=== PATIENT | female | born 1935 | race Caucasian/White ===

== ENCOUNTER → 2022-02-24 09:05 | Outpatient (BNVA) | payer MEDICARE, SELFPAY | PROVIDERS: PCP Internal Medicine; Visit Provider Nurse Practitioner Family | DX: R56.9 Unspecified convulsions (principal); S09.90XA Unspecified injury of head, initial encounter; I48.91 Unspecified atrial fibrillation; Z79.01 Long term (current) use of anticoagulants; Z79.899 Other long term (current) drug therapy | CPT/HCPCS: 99202 ==

== ENCOUNTER 2022-03-08 09:32 | Outpatient (REF) | payer MEDICARE, SELFPAY ==
--- NOTE | ~2022-03-08 | CT_ITS ---
EXAMINATION: CT HEAD WITHOUT CONTRAST CLINICAL INFORMATION: Atrial fibrillation. Status post fall with injury. COMPARISON: None TECHNIQUE: Contiguous axial imaging was performed from the skull base to vertex without intravenous administration of contrast. This CT examination was performed using dose optimization techniques as appropriate, variously including the following: *Automated exposure control *Adjustment of mA and/or kV according to patient size (this includes techniques or standardized protocols for targeted exams where dose is matched to indication/reason for exam; i.e. extremities or head) *Use of iterative reconstruction technique DLP: 728 mGy-cm FINDINGS: There is no evidence of acute intracranial hemorrhage or territorial infarction. No abnormal mass effect or midline shift is seen. Dill to white matter differentiation is well preserved. No extra-axial fluid collections are identified. The lateral ventricles are symmetrical but enlarged. Mild prominence of cortical sulci seen. There is a left frontal scalp hematoma measuring 1.7 x 0.9 cm. Bone windows reveal no calvarial abnormality no visible fracture seen. Bilateral paranasal sinuses and mastoid air cells are well aerated. Mild loss of bilateral TM joint space with periarticular spurring is noted. CT/CT head/brain wo con IMPRESSION: Left frontal scalp hematoma. No acute intracranial process seen. Age-related cerebral volume loss.
== END 2022-03-08 09:33 | disposition home or self-care (01) ==
LOC: HO.CT 09:32
PROVIDERS: PCP Internal Medicine; Visit Provider Nurse Practitioner Family
DX: S09.90XA Unspecified injury of head, initial encounter (principal); R56.9 Unspecified convulsions; I48.91 Unspecified atrial fibrillation
CPT/HCPCS: 70450

== ENCOUNTER → 2022-04-21 13:28 | Outpatient (BNVA) | payer MEDICARE, SELFPAY | PROVIDERS: PCP Internal Medicine; Visit Provider Nurse Practitioner Family | DX: R56.9 Unspecified convulsions (principal); E11.40 Type 2 diabetes mellitus with diabetic neuropathy, unspecified; I48.91 Unspecified atrial fibrillation; S09.90XD Unspecified injury of head, subsequent encounter | CPT/HCPCS: 99212 ==

== ENCOUNTER → 2022-10-27 10:28 | Outpatient (BNVA) | payer MEDICARE, SELFPAY | PROVIDERS: PCP Internal Medicine; Visit Provider Nurse Practitioner Family | DX: R56.9 Unspecified convulsions (principal); E11.40 Type 2 diabetes mellitus with diabetic neuropathy, unspecified | CPT/HCPCS: Q3014 ==

== ENCOUNTER 2023-04-28 13:11 | Outpatient (REF) | payer MEDICARE, SELFPAY ==
[2023-04-28 13:23] LABS: MANUAL DIFF FLAG NO
[2023-04-28 14:17] LABS: Basophils Absolute Auto 0.1 X10*3/uL (0.0-0.2); Basophils Percent Auto 0.6 % (0-2); Eosinophils Absolute Auto 0.1 X10*3/uL (0.0-0.4); Hematocrit 30.3 % (37.0-47.0); Imm Gran Abs Auto 0.02 X10*3/uL (0.00-0.03); Imm Gran Pct Auto 0.2 % (0.0-0.4); Lymphocytes Absolute Auto 2.3 X10*3/uL (1.2-4.9); Lymphocytes Percent Auto 28.6 % (20-40); Mean Corpuscular Hemoglobin 32.5 pg (27.0-33.0); Mean Corpuscular Volume 98.4 fL (80.0-98.0); Mean Platelet Volume 10.5 fL (9.4-12.3); Monocytes Absolute Auto 0.8 X10*3/uL (0.1-1.2); Monocytes Percent Auto 9.5 % (2-11); Neutrophils Absolute Auto 4.8 x10*3/uL (2.0-8.3); Neutrophils Percent Auto 60.1 % (45-73); Platelet Count 171 X10*3/uL (160-400); Red Blood Count 3.08 X10*6/uL (4.20-5.50); Red Cell Distribution Width 15.6 % (11.0-16.0)
[2023-04-28 15:32] LABS: Alanine Aminotransferase 23 U/L (0-31); Albumin Level 2.5 g/dL (3.5-5.0); Alkaline Phosphatase 166 U/L (39-117); Anion Gap 16 (12-20); Aspartate Amino Transferase 42 U/L (5-31); Bilirubin Total 0.5 mg/dL (0.0-1.0); Blood Urea Nitrogen 8 mg/dL (9-16); Calcium 8.6 mg/dL (8.4-10.2); Carbon Dioxide 26 mmol/L (22-29); Chloride 94 mmol/L (96-108); Estimated Glomerular Filt Rate 58; Glucose Random 97 mg/dL (60-115); Potassium 3.6 mmol/L (3.3-5.1); Sodium 132 mmol/L (135-145); Total Protein 5.4 g/dL (6.5-8.0)
== END 2023-04-28 13:12 | disposition home or self-care (01) ==
LOC: HO.LAB 13:11
PROVIDERS: PCP Internal Medicine; Visit Provider Nurse Practitioner Family
DX: R56.9 Unspecified convulsions (principal)
CPT/HCPCS: 36415; 80053; 85025

== ENCOUNTER 2024-08-27 10:44 | Outpatient (AMB) | payer MEDICARE, SELFPAY ==
--- NOTE | 2024-08-27 10:55 | A.OFFVIS_ITS ---
Vital Signs 08/27/24 10:59 Height 5 ft 7.5 in Weight 110 lb BMI 17.0 BP 144/58 H Blood Pressure Location Rt brachial Position Sitting Pulse 83 Pulse Source Pulse Oximeter Pulse Oximetry (%) 99 Oxygen Delivery Method Room Air Intake Visit Reasons: Follow up Typewriter Mechanic Required: No Accompanied by: Son Allergies No Known Allergies Allergy (Verified 08/27/24 11:03) Medication List - Last Reconciled 08/27/24 by SHIREEN Sol albuterol sulfate 2.5 mg inhalation Q4H PRN apixaban (Eliquis) 2.5 mg PO BID atenolol 50 mg PO DAILY cholecalciferol (vitamin D3) 25 mcg PO DAILY doxycycline hyclate 100 mg PO DAILY ferrous sulfate 325 mg PO DAILY levetiracetam 750 mg PO BID 90 days pantoprazole 40 mg PO DAILY prednisolone sodium phosphate 10 mg PO DAILY simvastatin 20 mg PO BEDTIME HPI Comments Details: 89-yr-old female presents for f/u visit. Pt is accompanied by her son, Freddy Ferro who is her HCP. She has interval hospitalizations at [facility] typically for COPD exacerbations. And in May 2024 for PNA and GI bleed- which has resolved. Pt reports she has had a recent hospital admission for COPD exacerbation and required a post-hosp rehab. She has since returned home. She is currently on a course of doxycycline and prednisone. Pt denies any interval seizure activity. She is compliant w/ Keppra- tolerating well. Denies headaches, spacing out episodes, lightheadedness, dizziness, falls. She is eating and drinking ok. She is still taking gin and tonic. Has not had any withdrawal s/s during her recent hospitalizations. She uses a rollator walker at home, w/c for appt's. She is sleeping a lot . Denies any stroke-like symptoms. Pt denies any recent BLE discomfort at times- does have a h/o painful neuropathy. [place] Lab Results ? Latest Ref Rng & Units 07/03/2024 White Blood Cell Count 4.8 - 10.8 x10-3/uL 5.6 RBC 3.8 - 4.8 x10-6/uL 2.9(L) Hemoglobin 11.5 - 16.0 g/dL 9.1(L) Hematocrit 35 - 47 % 29.9(L) MCV 79 - 98 fL 104.9(H) MEAN CORPUSCULAR HEMOGLOBIN 27 - 32 pg 31.9 MCHC 32 - 37 g/dL 30.4(L) RED CELL DISTRIBUTION WIDTH 11 - 15 % 16.3(H) Platelet Count 130 - 400 x10-3/uL 297 MPV 7 - 11 fL 10.0 NRBC % AUTO <1 % 0.0 NEUTROPHILS % 85.2 LYMPHOCYTESl % 8.9 MONO % % 5.0 EOSINOPHILS % 0.0 BASO % % 0.0 IMMATURE GRANULOCYTES % % 0.9 NRBC # AUTO <0.1 x10-3/uL 0.00 NEUT # 1.5 - 7.0 x10-3/uL 4.81 LYMPH # 1 - 5.0 x10-3/uL 0.50(L) MONO # 0.2 - 1.0 x10-3/uL 0.28 EOS # 0 - 0.5 x10-3/uL 0.00 BASO # 0 - 0.2 x10-3/uL 0.00 IMMATURE GRANULOCYTES #l 0 - 0.03 x10-3/uL 0.05(H) GLOMERULAR FILTRATION RATE >60 60 GLUCOSE, PLASMA 70 - 100 mg/dL 212(H) Blood Urea Nitrogen 5 - 25 mg/dL 18 creatinine 0.5 - 1.1 mg/dL 0.92 NA (WB) 135 - 145 mEq/L 138 K 3.5 - 5.5 mmol/L 4.3 Chloride 96 - 110 mmol/L 101 CARBON DIOXIDE 21 - 32 mmol/L 29 ANION GAP 3 - 11 8 CALCIUM 8.5 - 10.5 mg/dL 9.6 PROTEIN, TOTAL 6.0 - 8.0 G/dL 5.9(L) Albumin 3.2 - 5.0 G/dL 2.7(L) Bilirubin, total 0.0 - 1.4 mg/dL 0.2 AST (SGOT) 10 - 42 U/L 75(H) ALT (SGPT) 10 - 60 U/L 105(H) Alk Phos 42 - 121 U/L 123(H) IRON BINDING CAPACITY 250 - 450 ug/dL 327 IRON, TOTAL 40 - 150 ug/dL 29(L) % FE SATURATION 15 - 50 % 9(L) FERRITIN 8 - 252 ng/mL 120 [facility] Medical History Asthma Pulmonary nodule Hyperlipidemia Hypertension Cancer of mouth Alcohol abuse Type 2 diabetes mellitus with renal manifestations CKD (chronic kidney disease) Carotid stenosis Anemia Atrial fibrillation Surgical History Hx of oral surgery Hx of hemorrhoidectomy Hx of hysterectomy Social History Household Members Other:: SON Alcohol intake: current Alcohol intake frequency: 3 or more drinks per day Alcohol type: hard liquor Patient Tobacco Use Status: Current everyday Tobacco user Cigarette Packs Per Day: 0.5 Physical Exam Vital Signs: Last Vital Signs Pulse 83 08/27/24 10:59 BP 144/58 H 08/27/24 10:59 Pulse Ox 99 08/27/24 10:59 Oxygen Delivery Method Room Air 08/27/24 10:59 BMI result Body Mass Index 17.0 Resp Effort & Inspection: normal respiratory effort and able to speak in complete sentences Neuro Other: Patient is alert and oriented w/ short-term recall difficulties. Sitting upright in w/c. Psych Affect: normal affect Attitude: cooperative Assessment & Plan Assessment & Plan (1) Seizure: Code(s): R56.9 - Unspecified convulsions Category: Medical (2) Diabetic neuropathy: Code(s): E11.40 - Type 2 diabetes mellitus with diabetic neuropathy, unspecified Category: Medical Plan Continue Levetiracetam 750mg bid. Pt does continue to take alcohol on a daily basis when at home- pt is not interested in stopping. Advised abrupt alcohol cessation can induce seizure activity. Reviewed recent CBC and CMP- anemia. Pt has f/u w/ PCP on Monday. Monitor BLE neuropathic pain- may be improved as pt is currently on prednisone. Pt to call us with any interval changes or breakthrough seizures. Pt to follow-up in 12 months or sooner prn. Coding Level of Care Code Est Pt Level 4 (50537) Diagnoses Seizure R56.9 Diabetic neuropathy E11.40
[2024-08-27 10:59] VITALS: BP 144/58; PULSE 83; O2SAT 99; BMI 17.0
== END 2024-08-27 11:56 | disposition home or self-care (01) ==
PROVIDERS: PCP Internal Medicine; Visit Provider Nurse Practitioner Family
DX: R56.9 Unspecified convulsions (principal); E11.40 Type 2 diabetes mellitus with diabetic neuropathy, unspecified
CPT/HCPCS: 99214

== ENCOUNTER → 2024-08-27 10:44 | Outpatient (BNVA) | payer MEDICARE, SELFPAY | PROVIDERS: PCP Internal Medicine; Visit Provider Nurse Practitioner Family | DX: R56.9 Unspecified convulsions (principal); E11.40 Type 2 diabetes mellitus with diabetic neuropathy, unspecified; F10.20 Alcohol dependence, uncomplicated | CPT/HCPCS: 99212 ==

== ENCOUNTER 2025-08-27 07:51 | Outpatient (AMB) | payer MEDICARE, SELFPAY ==
--- OUTSIDE RECORDS SUMMARY | 2025-08-27 07:55 | XMS_ITS | Encounter Summary ---
Author Organization [facility] Address [address] [place] [address] Care Team Providers Care Research Associate Molecular Biology Name Role Phone Iam Gee MD Primary Care Provider [phone] Encounter Details Date Type Department Care Team ([facility] Contact Info) Description 02/28/[address] [facility] - Main Lab [address] [facility] [place] [address] Alan Longo MD [address] [place] [address] [address] [place], [address] Anemia, unspecified Social History Tobacco Use Types Packs/Day Years Used Date Smoking Tobacco: Former Cigarettes 1 69.2 1 01/03/1947 - 01/03/2018 Smokeless Tobacco: Never Alcohol Use Standard Drinks/Week Comments Yes 0 (1 standard drink = 0.6 oz pur e alcohol) Interpersonal Safety Answer Date Record ed Physical Abuse Unrecognized value 01/28/2025 Verbal Abuse Unrecognized value 01/28/2025 Comments Unknown Sex and Gender Information Value Date Recorded Sex Assigned at Female 01/07/2025 3:12 PM EST Legal Sex Female 7:04 AM EST Gender Identity Female 01/07/2025 3:12 PM EST Sexual Orientation Straight 01/07/2025 3: 12 PM EST documented as of this encounter Plan of Treatment Upcoming Encounters Date Type Department Care Team ([facility] Contact Info) Description 08/28/2025 10:30 AM EDT Office Visit Orthopedic Surgery - [place] [address] [facility] 250 [place] [phone] Aime Mendoza DPYosef 175 [facility] 250 [place] [phone] 09/12/2025 2:30 PM EDT Office Visit Vascular Surgery - [place] [address] [place] [address] Berny Saavedra MD 230 [place] [address] 10/13/2025 8:45 AM EST Office Visit Internal Medicine - [place] 175 [facility] 200 [place] [phone] Iam Gee MD [address] [address] 11/05/2025 8:30 AM EST Office Visit Gastroenterology [address] [phone] Elise Savage PA [address] [address] 11/10/2025 9:15 AM EST Office Visit Pulmonology - [address] [phone] Juanita Clements MD [address] [address] 01/05/2026 8:00 AM EST Office Visit Pulmonology [facility] [address] [phone] Juanita Clements MD [address] [address] 03/03/2026 9:00 AM EDT Ancillary Procedure [facility] [address] [place] [address] documented as of this encounter Procedures Procedure Name Priority Date/Time Associated Diagnosis Comments COMPLETE BLOOD COUNT Routine 03/03/2025 5:19 AM EDT Anemia, unspecified BASIC METABOLIC PANEL Routine 03/03/2025 5:19 AM EDT Anemia, unspecified documented in this encounter Results * (ABNORMAL) Basic metabolic panel (03/03/2025 5:19 AM EDT) Sodium 139 133 - 145 mmol/L LAB CHEMISTRY METHOD 03/03/2025 10:41 AM [facility] Potassium 4.1 3.5 - 5.5 mmol/L LAB CHEMISTRY METHOD 03/03/2025 10:41 AM [facility] Chloride 101 96 - 110 mmol/L LAB CHEMISTRY METHOD 03/03/2025 10:41 AM [facility] CO2 31 21 - 32 mmol/L LAB CHEMISTRY METHOD 03/03/2025 10:41 AM [facility] Anion Gap 7 3 - 11 LAB CHEMISTRY METHOD 03/03/2025 10:41 AM [facility] Glucose 74 70 - 100 mg/dL LAB CHEMISTRY METHOD 03/03/2025 10:41 AM [facility] BUN 26(H) 5 - 25 mg/dL LAB CHEMISTRY METHOD 03/03/2025 10:41 AM [facility] Creatinine 1.04 0.50 - 1.10 mg/dL LAB CHEMISTRY METHOD 03/03/2025 10:41 AM [facility] eGFR 52(L) >=60 mL/min/1. 73m2 LAB CHEMISTRY METHOD 03/03/2025 10:41 AM [facility] Comment:Calculation based on the Chronic Kidney Disease Epidemiology Collaboration (CKD-EPI) equation refit without adjustment for race. BUN/Creatinine Ratio 25.0 LAB CHEMISTRY METHOD 03/03/2025 10:41 AM T [facility] Calcium 9.3 8.5 - 10.5 mg/dL LAB CHEMISTRY METHOD 03/03/2025 10:41 AM [facility] Blood Venous blood specimen / Unknown Venipuncture / Unknown 03/03/2025 5:19 AM EDT 03/03/2025 9:57 AM EDT us Alan Longo MD LAB BLOOD ORDERABLES Final Resul t [facility] [address] [place] [address], [place] [phone] * (ABNORMAL) Complete blood count (03/03/2025 5:19 AM EDT) WBC 7.8 4.8 - 10.8 K/mcL LAB HEMETOLOGY METHOD 03/03/2025 10:24 AM [facility] RBC 2.90(L) 3.80 - 4.80 M/mcL LAB HEMETOLOGY METHOD 03/03/2025 10:24 AM [facility] Hemoglobin 9.0(L) 11.5 - 16.0 g/dL LAB HEMETOLOGY METHOD 03/03/2025 10:24 AM [facility] Hematocrit 28.1(L) 35.0 - 47.0 % LAB HEMETOLOGY METHOD 03/03/2025 10:24 AM [facility] MCV 98.3(H) 79.0 - 98.0 FL LAB HEMETOLOGY METHOD 03/03/2025 10:24 AM [facility] MCH 31.5 27.0 - 32.0 pcg LAB HEMETOLOGY METHOD 03/03/2025 10:24 AM [facility] MCHC 32.0 32.0 - 37.0 g/dL LAB HEMETOLOGY METHOD 03/03/2025 10:24 AM EDT [facility] RDW 15.3(H) 11.0 - 15.0 % LAB HEMETOLOGY METHOD 03/03/2025 10:24 AM EDT [facility] Platelets 184 130 - 400 K/mcL LAB HEMETOLOGY METHOD 03/03/2025 10:24 AM EDT [facility] MPV 10.8 7.0 - 11.0 FL LAB HEMETOLOGY METHOD 03/03/2025 10:24 AM EDT [facility] NRBC 0.0 <1.0 % LAB HEMETOLOGY METHOD 03/03/2025 10:24 AM EDT [facility] NRBC Absolute 0.00 <0.10 K/mcL LAB HEMETOLOGY METHOD 03/03/2025 10:24 AM EDT [facility] Blood Venous blood specimen / Unknown Venipuncture / Unknown 03/03/2025 5:19 AM EDT 03/03/2025 9:57 AM EDT us Alan Longo MD LAB BLOOD ORDERABLES Final Resul t [facility] [address] [place] [address], documented in this encounter Visit Diagnoses Diagnosis Anemia, unspecified Encounter for adjustment or management of cardiac device documented in this encounter Care Teams Research Associate Molecular Biology Relationship Specialty Start Date End Date Iam Gee MD [address] [address] PCP - General Internal Medicine 12/30/24 documented as of this encounter
--- OUTSIDE RECORDS SUMMARY | 2025-08-27 07:55 | XMS_ITS | Encounter Summary ---
Author Organization [facility] Address [address] [place] [address] Care Team Providers Care Access Services Representative Name Role Phone Iam Gee MD Primary Care Provider [phone] Encounter Details Date Type Department Care Team ([facility] Contact Info) Description 03/07/2025 Lab Requisition [facility] - Main Lab [address] [facility] [place] [address] Alan Longo MD [address] [place] [address] [address] [place], [address] Anemia, unspecified Social History Tobacco Use [...] Upcoming Encounters Date Type Department Care Team ([facility] Contact Info) Description 08/28/2025 10:30 AM EDT Office Visit Orthopedic Surgery - [place] 250 175 [facility] 250 [place] [phone] Aime Mendoza DPYosef 175 [facility] 250 [place] [phone] 09/12/2025 2:30 PM EDT Office Visit Vascular Surgery - [place] [address] [place] [address] Berny Saavedra MD 230 [place] [address] 10/13/2025 8:45 AM EST Office Visit Internal Medicine - [place] 175 [facility] 200 [place] [phone] Iam Gee MD [address] [address] 11/05/2025 8:30 AM EST Office Visit Gastroenterology [address] [phone] Elise Savage PA [address] [address] 11/10/2025 9:15 AM EST Office Visit Pulmonology - [address] [phone] Juanita Clements MD [address] [address] 01/05/2026 8:00 AM EST Office Visit Pulmonology [facility] [address] [phone] Juanita Clements MD [address] [address] 03/03/2026 9:00 AM EDT Ancillary Procedure [facility] - [address] [place] [address] documented as of this encounter Visit Diagnoses Diagnosis Anemia, unspecified Encounter for adjustment or management of cardiac device documented in this encounter Care Teams Access Services Representative Relationship Specialty Start Date End Date Iam Gee MD [address] [facility] [address] [place], [place] [phone] PCP - General Internal Medicine 12/30/24 documented as of this encounter
--- OUTSIDE RECORDS SUMMARY | 2025-08-27 07:55 | XMS_ITS ---
Author Organization [address] [facility] Address 175 [place] [address] Phone Care Team Providers Care Manager Behavioral Name Role Phone Iam Gee MD Primary Care Provider [phone] Active Problems Problem Noted Date Diagnosed Date Absent pedal pulses 08/01/2025 Atrial fib/flutter, transient ([facility] V24, [facility] V28) 06/09/2025 AV block 01/28/2025 Essential (primary) hypertension 12/06/2024 Chronic obstructive pulmonar y disease, unspecified ([facility] V24, [facility] V28) 12/06/2024 Nicotine dependence, cigarettes, uncomplicated 0 12/06/2024 Peripheral vascular disease, unspecified ([facility] V24) 12/06/2024 Squamous cell carcinoma of skin, unspecified 08/2025 Epilepsy, unspecified, not i ntractable, without status epilepticus ([facility] V24, [facility] V28) 12/06/2024 COPD (chronic obstructive pu lmonary disease) ([facility] V24, [facility] V28) 07/18/2023 Overview (09/16/2024): Last Assessment & Plan: Given her history of smoking, symptoms, recent hospitalization most likely she has moderate to advanced COPD. She is currently taking Spiriva and Symbicort and I recommended her to continue with these medications. We will reassess when she comes back for pulmonary function test. I encouraged her to continue without smoking. Hypoxemia 07/18/2023 Overview (09/16/2024): Last Assessment & Plan: Patient with hypoxemia at rest of 86% measured multiple times. Patient cannot walk at this point. I have prescribed oxygen to use at home and we will reevaluate her in 6-8 weeks with pulmonary function test. Slightly dizzy combination of the status post pneumonia and COPD. Lumbar vertebral fracture ([facility] V24, [facility] V28) 07/08/2022 Overview (09/16/2024): Last Assessment & Plan: Incidentally found on this CT chest she is noted to have fractures of L2, L3, and L4 vertebral body which is new compared to CT scan done in June 2021. This may be related to her recent fall. Upon my questioning it does not appear that she has any neurological changes to her lower extremities, urinary or fecal incontinence. She complains of some residual soreness and stiffness to her lower back. I will be sending my note with these results over to her primary care physician for further evaluation of these vertebral body fractures. Carotid stenosis 09/28/2021 Overview (09/16/2024): Last Assessment & Plan: We will repeat carotid duplex. Anemia 09/10/2019 CKD (chronic kidney disease) stage 3, GFR 30-59 ml/min ([facility] V24, [facility] V28) 12/28/2018 Type 2 diabetes mellitus wit h renal manifestations ([facility] V24, [facility] V28) 12/28/2018 Seizure disorder ([facility] V24, [facility] V28) 07/28 Alcohol abuse 08/14/2018 Cancer of mouth ([facility] V24, [facility] V28) 08/14 Diabetic neuropathy ([facility] V24, [facility] V28) 0 08/14/2018 Hypertension 08/14/2018 Diabetes mellitus type 2 wit h neurological manifestations ([facility] V24, [facility] V28) 06/12/2018 Hyperlipidemia 03/01/2018 Pulmonary nodules 03/01/2018 Overview (09/16/2024): Last Assessment & Plan: She has been followed currently in the thoracic clinic. Asthma 11/29/2016 Current Treatment and Therapy Plans No current plan information found. Past Treatment and Therapy Plans No past plan information found. Lifetime Dose Tracking * Chemical Lifetime Dose Automatic Entry Manual Entr y Radiation 820.68 mGy 0 mGy 820.68 mGy Fluoro Time 14.5 minutes 0 minutes 14.5 minutes CTDIvol 6.64 mGy 6.64 mGy 0 mGy
--- OUTSIDE RECORDS SUMMARY | 2025-08-27 07:55 | XMS_ITS | Encounter Summary ---
Author Organization [facility] Address [address] [place] [address] Care Team Providers Care Chipping Machine Operator Name Role Phone Iam Gee MD Primary Care Provider [phone] Encounter Details Date Type Department Care Team ([facility] Contact Info) Description 02/16/[address] [facility] - Main Lab 299 [facility] [place] [address] Alan Longo MD [address] [place] [address] 204 [place], [phone] Anemia, unspecified Social History Tobacco Use [...] AM EDT Office Visit Orthopedic Surgery - [place] 250 175 [facility] 250 [place] [phone] Aime Mendoza DPYosef 175 [facility] 250 [place] [phone] 09/12/2025 2:30 PM EDT Office Visit Vascular Surgery - [place] [address] [place] [address] Berny Saavedra MD 230 [place] [address] 10/13/2025 8:45 AM EST Office Visit Internal Medicine - [place] 175 [facility] 200 [place] [phone] Iam Gee MD [address] [address] 11/05/2025 8:30 AM EST Office Visit Gastroenterology [address] [phone] Elise Savage PA [address] [address] 11/10/2025 9:15 AM EST Office Visit Pulmonology - [address] [phone] Juanita Clements MD [address] [address] 01/05/2026 8:00 AM EST Office Visit Pulmonology [facility] [address] [phone] Juanita Clements MD [address] [address] 03/03/2026 9:00 AM EDT Ancillary Procedure [facility] - [address] [place] [address] documented as of this encounter Procedures Procedure Name Priority Date/Time Associated Diagnosis Comments COMPLETE BLOOD COUNT Routine 02/17/2025 5:26 AM EDT Anemia, unspecified BASIC METABOLIC PANEL Routine 02/17/2025 5:26 AM EDT Anemia, unspecified documented in this encounter Results * (ABNORMAL) Basic metabolic panel (02/17/2025 5:26 AM EDT) Sodium 133 133 - 145 mmol/L LAB CHEMISTRY METHOD 02/17/2025 11:10 AM [facility] Potassium 4.4 3.5 - 5.5 mmol/L LAB CHEMISTRY METHOD 02/17/2025 11:10 AM [facility] Chloride 94(L) 96 - 110 mmol/L LAB CHEMISTRY METHOD 02/17/2025 11:10 AM [facility] CO2 31 21 - 32 mmol/L LAB CHEMISTRY METHOD 02/17/2025 11:10 AM [facility] Anion Gap 8 3 - 11 LAB CHEMISTRY METHOD 02/17/2025 11:10 AM [facility] Glucose 95 70 - 100 mg/dL LAB CHEMISTRY METHOD 02/17/2025 11:10 AM [facility] BUN 22 5 - 25 mg/dL LAB CHEMISTRY METHOD 02/17/2025 11:10 AM [facility] Creatinine 0.92 0.50 - 1.10 mg/dL LAB CHEMISTRY METHOD 02/17/2025 11:10 AM [facility] eGFR 60 >=60 mL/min/1. 73m2 LAB CHEMISTRY METHOD 02/17/2025 11:10 AM [facility] Comment:Calculation based on the Chronic Kidney Disease Epidemiology Collaboration (CKD-EPI) equation refit without adjustment for race. BUN/Creatinine Ratio 23.9 LAB CHEMISTRY METHOD 02/17/2025 11:10 AM T [facility] Calcium 8.8 8.5 - 10.5 mg/dL LAB CHEMISTRY METHOD 02/17/2025 11:10 AM [facility] Blood Venous blood specimen / Unknown Venipuncture / Unknown 02/17/2025 5:26 AM EDT 02/17/2025 9:47 AM EDT us Alan Longo MD LAB BLOOD ORDERABLES Final Resul t [facility] 299 [place] [address], [place] [phone] * (ABNORMAL) Complete blood count (02/17/2025 5:26 AM EDT) WBC 12.7(H) 4.8 - 10.8 K/mcL LAB HEMETOLOGY METHOD 02/17/2025 10:01 AM [facility] RBC 2.60(L) 3.80 - 4.80 M/mcL LAB HEMETOLOGY METHOD 02/17/2025 10:01 AM [facility] Hemoglobin 8.4(L) 11.5 - 16.0 g/dL LAB HEMETOLOGY METHOD 02/17/2025 10:01 AM [facility] Hematocrit 25.1(L) 35.0 - 47.0 % LAB HEMETOLOGY METHOD 02/17/2025 10:01 AM [facility] MCV 96.5 79.0 - 98.0 FL LAB HEMETOLOGY METHOD 02/17/2025 10:01 AM [facility] MCH 32.3(H) 27.0 - 32.0 pcg LAB HEMETOLOGY METHOD 02/17/2025 10:01 AM [facility] MCHC 33.5 32.0 - 37.0 g/dL LAB HEMETOLOGY METHOD 02/17/2025 10:01 AM EDT [facility] RDW 14.6 11.0 - 15.0 % LAB HEMETOLOGY METHOD 02/17/2025 10:01 AM EDT [facility] Platelets 397 130 - 400 K/mcL LAB HEMETOLOGY METHOD 02/17/2025 10:01 AM EDT [facility] MPV 9.5 7.0 - 11.0 FL LAB HEMETOLOGY METHOD 02/17/2025 10:01 AM EDT [facility] NRBC 0.0 <1.0 % LAB HEMETOLOGY METHOD 02/17/2025 10:01 AM EDT [facility] NRBC Absolute 0.00 <0.10 K/mcL LAB HEMETOLOGY METHOD 02/17/2025 10:01 AM EDT [facility] Blood Venous blood specimen / Unknown Venipuncture / Unknown 02/17/2025 5:26 AM EDT 02/17/2025 9:47 AM EDT us Alan Longo MD LAB BLOOD ORDERABLES Final Resul t [facility] [address] [place] [address], documented in this encounter Visit Diagnoses Diagnosis Anemia, unspecified Encounter for adjustment or management of cardiac device documented in this encounter Care Teams Chipping Machine Operator Relationship Specialty Start Date End Date Iam Gee MD [address] [address] PCP - General Internal Medicine 12/30/24 documented as of this encounter
--- OUTSIDE RECORDS SUMMARY | 2025-08-27 07:55 | XMS_ITS | Encounter Summary ---
Author Organization [facility] Address [address] [place] [address] Care Team Providers Care 3Rd Grade Teacher Name Role Phone Iam Gee MD Primary Care Provider [phone] Encounter Details Date Type Department Care Team ([facility] Contact Info) Description 02/23/2025 Lab Requisition [facility] - Main Lab 299 [facility] [place] [address] Alan Longo MD [address] [place] [address] 204 [place], [phone] Anemia, unspecified Social History Tobacco Use [...] Upcoming Encounters Date Type Department Care Team ([facility] Contact Info) Description 08/28/2025 10:30 AM EDT Office Visit Orthopedic Surgery - [place] 250 175 [facility] 250 [place] [phone] Aime Mendoza DPYosef 175 [facility] 250 [place] [phone] 09/12/2025 2:30 PM EDT Office Visit Vascular Surgery - [place] [address] [place] [address] Berny Saavedra MD 230 [place] [address] 10/13/2025 8:45 AM EST Office Visit Internal Medicine - [place] 175 [facility] 200 [place] [phone] Iam Gee MD [address] [address] 11/05/2025 8:30 AM EST Office Visit Gastroenterology [address] [phone] Elise Savage PA [address] [address] 11/10/2025 9:15 AM EST Office Visit Pulmonology - [address] [phone] Juanita Clements MD [address] [address] 01/05/2026 8:00 AM EST Office Visit Pulmonology [facility] [address] [phone] Juanita Clements MD [address] [address] 03/03/2026 9:00 AM EDT Ancillary Procedure [facility] - [address] [place] [address] documented as of this encounter Procedures Procedure Name Priority Date/Time Associated Diagnosis Comments COMPLETE BLOOD COUNT Routine 02/24/2025 4:52 AM EDT Anemia, unspecified BASIC METABOLIC PANEL Routine 02/24/2025 4:52 AM EDT Anemia, unspecified documented in this encounter Results * (ABNORMAL) Basic metabolic panel (02/24/2025 4:52 AM EDT) Sodium 133 133 - 145 mmol/L LAB CHEMISTRY METHOD 02/24/2025 11:28 AM [facility] Potassium 4.3 3.5 - 5.5 mmol/L LAB CHEMISTRY METHOD 02/24/2025 11:28 AM [facility] Chloride 96 96 - 110 mmol/L LAB CHEMISTRY METHOD 02/24/2025 11:28 AM [facility] CO2 31 21 - 32 mmol/L LAB CHEMISTRY METHOD 02/24/2025 11:28 AM [facility] Anion Gap 6 3 - 11 LAB CHEMISTRY METHOD 02/24/2025 11:28 AM [facility] Glucose 83 70 - 100 mg/dL LAB CHEMISTRY METHOD 02/24/2025 11:28 AM [facility] BUN 26(H) 5 - 25 mg/dL LAB CHEMISTRY METHOD 02/24/2025 11:28 AM [facility] Creatinine 0.99 0.50 - 1.10 mg/dL LAB CHEMISTRY METHOD 02/24/2025 11:28 AM [facility] eGFR 55(L) >=60 mL/min/1. 73m2 LAB CHEMISTRY METHOD 02/24/2025 11:28 AM [facility] Comment:Calculation based on the Chronic Kidney Disease Epidemiology Collaboration (CKD-EPI) equation refit without adjustment for race. BUN/Creatinine Ratio 26.3 LAB CHEMISTRY METHOD 02/24/2025 11:28 AM EDT [facility] Calcium 9.2 8.5 - 10.5 mg/dL LAB CHEMISTRY METHOD 02/24/2025 11:28 AM T [facility] Blood Venous blood specimen / Unknown Venipuncture / Unknown 02/24/2025 4:52 AM EDT 02/24/2025 10:19 AM EDT us Alan Longo MD LAB BLOOD ORDERABLES Final Resul t [facility] 299 [place] [address], [place] [phone] * (ABNORMAL) Complete blood count (02/24/2025 4:52 AM EDT) WBC 9.6 4.8 - 10.8 K/mcL LAB HEMETOLOGY METHOD 02/24/2025 10:51 AM [facility] RBC 2.90(L) 3.80 - 4.80 M/mcL LAB HEMETOLOGY METHOD 02/24/2025 10:51 AM [facility] Hemoglobin 9.1(L) 11.5 - 16.0 g/dL LAB HEMETOLOGY METHOD 02/24/2025 10:51 AM [facility] Hematocrit 28.4(L) 35.0 - 47.0 % LAB HEMETOLOGY METHOD 02/24/2025 10:51 AM [facility] MCV 97.6 79.0 - 98.0 FL LAB HEMETOLOGY METHOD 02/24/2025 10:51 AM [facility] MCH 31.3 27.0 - 32.0 pcg LAB HEMETOLOGY METHOD 02/24/2025 10:51 AM [facility] MCHC 32.0 32.0 - 37.0 g/dL LAB HEMETOLOGY METHOD 02/24/2025 10:51 AM EDT [facility] RDW 15.0 11.0 - 15.0 % LAB HEMETOLOGY METHOD 02/24/2025 10:51 AM EDT [facility] Platelets 293 130 - 400 K/mcL LAB HEMETOLOGY METHOD 02/24/2025 10:51 AM EDT [facility] MPV 10.0 7.0 - 11.0 FL LAB HEMETOLOGY METHOD 02/24/2025 10:51 AM EDT [facility] NRBC 0.0 <1.0 % LAB HEMETOLOGY METHOD 02/24/2025 10:51 AM EDT [facility] NRBC Absolute 0.00 <0.10 K/mcL LAB HEMETOLOGY METHOD 02/24/2025 10:51 AM EDT [facility] Blood Venous blood specimen / Unknown Venipuncture / Unknown 02/24/2025 4:52 AM EDT 02/24/2025 10:19 AM EDT us Alan Longo MD LAB BLOOD ORDERABLES Final Resul t [facility] [address] [place] [address], documented in this encounter Visit Diagnoses Diagnosis Anemia, unspecified Encounter for adjustment or management of cardiac device documented in this encounter Care Teams 3Rd Grade Teacher Relationship Specialty Start Date End Date Iam Gee MD [address] [address] PCP - General Internal Medicine 12/30/24 documented as of this encounter
--- OUTSIDE RECORDS SUMMARY | 2025-08-27 07:55 | XMS_ITS | Encounter Summary ---
Author Organization [facility] Address [address] [place] [address] Care Team Providers Care Developmental Writing Instructor Name Role Phone Iam Gee MD Primary Care Provider [phone] Encounter Details Date Type Department Care Team (Latest Contact Info) Description 02/18/2025 Lab Requisition [facility] - Main Lab 299 [facility] [place] [address] Alan Longo MD [address] [place] [address], [phone] Gastrointestinal hemorrhage, unspecified; Anemia, unspecified Social History Tobacco Use Types [...] Upcoming Encounters Date Type Department Care Team (Late st Contact Info) Description 08/28/2025 10:30 AM EDT Office Visit Orthopedic Surgery - [place] 250 175 [facility] 250 [place] [phone] Aime Mendoza DPYosef 175 [facility] 250 [place] [address] 09/12/2025 2:30 PM EDT Office Visit Vascular Surgery - [place] [address] [place] [address] Berny Saavedra MD 230 [place] [address] 10/13/2025 8:45 AM EST Office Visit Internal Medicine - [place] 175 [facility] 200 [place] [phone] Iam Gee MD [address] [address] 11/05/2025 8:30 AM EST Office Visit Gastroenterology - [place] [address] [phone] Elise Savage PA [address] [address] 11/10/2025 9:15 AM EST Office Visit Pulmonology - [place] [address] [phone] Juanita Clements MD [address] [address] 01/05/2026 8:00 AM EST Office Visit Pulmonology [facility] [address] [phone] Juanita Clements MD [address] [address] 03/03/2026 9:00 AM EDT Ancillary Procedure [facility] - [facility] [address] [facility] [address] [place] [address] documented as of this encounter Procedures Procedure Name Priority Date/Time Associated Diagnosis Comments COMPLETE BLOOD COUNT Routine 02/18/2025 5:53 AM EDT Gastrointestinal hemorrhage, unspecified Anemia, unspecified BASIC METABOLIC PANEL Routine 02/18/2025 5:53 AM EDT Gastrointestinal hemorrhage, unspecified Anemia, unspecified documented in this encounter Results * (ABNORMAL) Basic metabolic panel (02/18/2025 5:53 AM EDT) Sodium 133 133 - 145 mmol/L LAB CHEMISTRY METHOD 02/18/2025 10:34 AM [facility] Potassium 4.5 3.5 - 5.5 mmol/L LAB CHEMISTRY METHOD 02/18/2025 10:34 AM [facility] Chloride 95(L) 96 - 110 mmol/L LAB CHEMISTRY METHOD 02/18/2025 10:34 AM [facility] CO2 33(H) 21 - 32 mmol/L LAB CHEMISTRY METHOD 02/18/2025 10:34 AM [facility] Anion Gap 5 3 - 11 LAB CHEMISTRY METHOD 02/18/2025 10:34 AM [facility] Glucose 99 70 - 100 mg/dL LAB CHEMISTRY METHOD 02/18/2025 10:34 AM [facility] BUN 24 5 - 25 mg/dL LAB CHEMISTRY METHOD 02/18/2025 10:34 AM [facility] Creatinine 0.94 0.50 - 1.10 mg/dL LAB CHEMISTRY METHOD 02/18/2025 10:34 AM [facility] eGFR 58(L) >=60 mL/min/1. 73m2 LAB CHEMISTRY METHOD 02/18/2025 10:34 AM EDT [facility] Comment:Calculation based on the Chronic Kidney Disease Epidemiology Collaboration (CKD-EPI) equation refit without adjustment for race. BUN/Creatinine Ratio 25.5 LAB CHEMISTRY METHOD 02/18/2025 10:34 AM T [facility] Calcium 8.8 8.5 - 10.5 mg/dL LAB CHEMISTRY METHOD 02/18/2025 10:34 AM [facility] Blood Venous blood specimen / Unknown Venipuncture / Unknown 02/18/2025 5:53 AM EDT 02/18/2025 9:45 AM EDT us Alan Longo MD LAB BLOOD ORDERABLES Final Resul t [facility] [address] [place] [address], * (ABNORMAL) Complete blood count (02/18/2025 5:53 AM EDT) WBC 12.3(H) 4.8 - 10.8 K/mcL LAB HEMETOLOGY METHOD 02/18/2025 10:06 AM [facility] RBC 2.80(L) 3.80 - 4.80 M/mcL LAB HEMETOLOGY METHOD 02/18/2025 10:06 AM [facility] Hemoglobin 8.8(L) 11.5 - 16.0 g/dL LAB HEMETOLOGY METHOD 02/18/2025 10:06 AM [facility] Hematocrit 27.4(L) 35.0 - 47.0 % LAB HEMETOLOGY METHOD 02/18/2025 10:06 AM [facility] MCV 99.6(H) 79.0 - 98.0 FL LAB HEMETOLOGY METHOD 02/18/2025 10:06 AM [facility] MCH 32.0 27.0 - 32.0 pcg LAB HEMETOLOGY METHOD 02/18/2025 10:06 AM EDT [facility] MCHC 32.1 32.0 - 37.0 g/dL LAB HEMETOLOGY METHOD 02/18/2025 10:06 AM EDT [facility] RDW 14.7 11.0 - 15.0 % LAB HEMETOLOGY METHOD 02/18/2025 10:06 AM EDT [facility] Platelets 372 130 - 400 K/mcL LAB HEMETOLOGY METHOD 02/18/2025 10:06 AM EDT [facility] MPV 9.7 7.0 - 11.0 FL LAB HEMETOLOGY METHOD 02/18/2025 10:06 AM EDT [facility] NRBC 0.2 <1.0 % LAB HEMETOLOGY METHOD 02/18/2025 10:06 AM EDT [facility] NRBC Absolute 0.02 <0.10 K/mcL LAB HEMETOLOGY METHOD 02/18/2025 10:06 AM EDT [facility] Blood Venous blood specimen / Unknown Venipuncture / Unknown 02/18/2025 5:53 AM EDT 02/18/2025 9:45 AM EDT us Alan Longo MD LAB BLOOD ORDERABLES Final Resul t [facility] [address] [place] [address], documented in this encounter Visit Diagnoses Diagnosis Gastrointestinal hemorrhage, unspecified Anemia, unspecified Encounter for adjustment or management of cardiac device documented in this encounter Care Teams Developmental Writing Instructor Relationship Specialty Start Date End Date Iam Gee MD [address] [address] PCP - General Internal Medicine 12/30/24 documented as of this encounter
--- OUTSIDE RECORDS SUMMARY | 2025-08-27 07:55 | XMS_ITS | Clinical Summary ---
Author Organization 175 [facility] Address [address] [place] [address] Phone Care Team Providers Care Binding Cutter Synthetic Cloth Name Role Phone Iam Gee MD Primary Care Provider [phone] Allergies No known active allergies Medications ALBUTEROL INHL Inhale into the lungs. Active cholecalciferol (VITAMIN D-3) 25 mcg (1,000 unit) tablet Take 4 Tablets by mouth. Active ferrous fumarate 324 mg (106 mg iron) tablet Take by mouth. Activ e levETIRAcetam (KEPPRA) 750 mg tablet Take 1 tablet (750 mg total) by mouth 2 (two) times a day. Active lactose-reduced food (ENSURE ACTIVE HIGH PROTEIN ORAL) Take 237 mL by mouth. 3 times a day for 30 days Active nutritional supplements 0.06 gram-1.2 kcal/mL liquid Take 1 Can by mouth 3 times daily. Not for g tube 020 Active ipratropium-alb uteroL (DUONEB) 0.5-2.5 mg/3 mL nebulizer solution Take 3 mL by nebulization 4 (four) times a day. 360 mL 11 024 2024 Active budesonide (PULMICORT) 1 mg/2 mL nebulizer solutionIndicat ions:COPD with asthma (CMS/HCC V24, CMS/HCC V28) Take 2 mL (1 mg total) by nebulization 1 (one) time each day. Rinse mouth with water after use to reduce aftertaste and incidence of candidiasis. Do not swallow. 60 mL 12 025 2025 Active pcohihkd-yzs-ke on-FA-vit K-lut (Multivitamin Women 50 Plus) 8 mg iron-400 mcg-50 mcg tablet Take by mouth. Activ e nicotine (NICODERM CQ) 14 mg/[address] 1 patch on the skin 1 (one) time each day. 30 each 025 Active budesonide (PULMICORT) 0.5 mg/2 mL nebulizer solutionIndicat ions:Asthma, unspecified asthma severity, unspecified whether complicated, unspecified whether persistent TAKE 2 ML (0.5 MG TOTAL) BY NEBULIZATION TWICE A DAY 120 mL 5 025 Active metoprolol tartrate (LOPRESSOR) 75 mg tablet Take 1 tablet (75 mg total) by mouth 2 (two) times a day. 180 tablet 1 025 2024 Active ferrous sulfate 325 mg (65 mg elemental iron) tablet TAKE 1 TABLET BY MOUTH 1 TIME EACH DAY WITH BREAKFAST. 90 tablet 1 025 Active apixaban (Eliquis) 2.5 mg tablet Take 1 tablet (2.5 mg total) by mouth 2 (two) times a day. 180 tablet 1 025 Active pantoprazole (PROTONIX) 40 mg EC tablet Take 1 tablet (40 mg total) by mouth 2 (two) times a day. Take on empty stomach, wait 30 minutes and then eat to activate medication-befo re breakfast and supper 60 each 025 2025 Active silver sulfADIAZINE (Silvadene) 1 % cream Apply topically 1 (one) time each day. 50 g 025 2025 Active simvastatin (ZOCOR) 20 mg tablet TAKE 1 TABLET BY MOUTH 1 TIME EACH DAY IN THE EVENING. 90 tablet 1 Active thiamine 100 mg tablet TAKE 1 TABLET BY MOUTH EVERY DAY 90 tablet 1 025 Active amiodarone (PACERONE) 200 mg tablet TAKE 1 TABLET BY MOUTH 1 TIME EACH DAY. 90 tablet 1 025 Active predniSONE (DELTASONE) 10 mg tablet Take 1 tablet (10 mg total) by mouth 1 (one) time each day. 2024 Discontinued(F ormulary change) thiamine (VITAMIN B-1) 100 mg/mL injection 2024 Discontinued(F ormulary change) simvastatin (ZOCOR) 20 mg tablet Take 1 tablet (20 mg total) by mouth 1 (one) time each day in the evening. 90 tablet 1 024 2024 Discontinued thiamine 100 mg tablet TAKE 1 TABLET BY MOUTH EVERY DAY 90 tablet 1 025 2024 Discontinued amiodarone (PACERONE) 200 mg tablet Take 1 tablet (200 mg total) by mouth 1 (one) time each day. 90 each 025 2024 Discontinued cephalexin (KEFLEX) 500 mg capsule Take 1 capsule (500 mg total) by mouth 3 (three) times a day for 10 days. 30 each 025 2024 Active Problems Problem Noted Date Diagnosed Date Absent pedal pulses 08/01/2025 Atrial fib/flutter, transient ([facility] V24, [facility] V28) 06/09/2025 AV block 01/28/2025 Essential (primary) hypertension 12/06/2024 Chronic obstructive pulmonar y disease, unspecified ([facility] V24, [facility] V28) 12/06/2024 Nicotine dependence, cigarettes, uncomplicated 0 12/06/2024 Peripheral vascular disease, unspecified ([facility] V24) 12/06/2024 Squamous cell carcinoma of skin, unspecified 08/2025 Epilepsy, unspecified, not i ntractable, without status epilepticus ([facility] V24, [facility] V28) 12/06/2024 COPD (chronic obstructive pu lmonary disease) ([facility] V24, [facility] V28) 07/18/2023 Overview (09/16/2024): Last Assessment & [...] post pneumonia and COPD. Lumbar vertebral fracture ([facility] V24, [facility] V28) 07/08/2022 Overview (09/16/2024): Last Assessment & [...] kidney disease) stage 3, GFR 30-59 ml/min ([facility] V24, [facility] V28) 12/28/2018 Type 2 diabetes mellitus wit h renal manifestations ([facility] V24, [facility] V28) 12/28/2018 Seizure disorder ([facility] V24, [facility] V28) 07/28 Alcohol abuse 08/14/2018 Cancer of mouth ([facility] V24, [facility] V28) 08/14 Diabetic neuropathy ([facility] V24, [facility] V28) 0 08/14/2018 Hypertension 08/14/2018 Diabetes mellitus type 2 wit h neurological manifestations ([facility] V24, [facility] V28) 06/12/2018 Hyperlipidemia 03/01/2018 Pulmonary nodules 03/01/2018 Overview (09/16/2024): Last Assessment & Plan: She has been followed currently in the thoracic clinic. Asthma 11/29/2016 Encounters Date Type Department Care Team Description 08/26/2025 Telephone Vascular Surgery - [place] [address] [place] [phone] Berny Saavedra MD 08/19/2025 7:30 AM EDT - 08/19/2025 8:30 AM EDT Surgery [facility] Cardiac Workers Compensation Claims Assistant [address] [place] [phone] Berny Saavedra MD Angiography right lower extremity [[id number] (CPT )] 08/19/2025 7:15 AM EDT Anesthesia Event [facility] Cardiac Workers Compensation Claims Assistant [address] [place] [phone] Mirtha Garcia MA 08/19/2025 6:18 AM EDT - 08/19/2025 3:32 PM EDT Hospital Encounter [facility] Cardiac Workers Compensation Claims Assistant [address] [place] [phone] Berny Saavedra MD PAD (peripheral artery disease) (CMS/HCC V24) (Primary Dx); Absent pedal pulses Discharge Disposition: Home or Self Care 08/19/2025 Telephone Internal Medicine - [facility] [facility] [address] [place] [phone] Iam Gee MD 08/15/2025 9:30 AM EDT Consult Pulmonology - [facility] [address] [facility] [address] [place] [phone] Kirsten Sanchez MD Chronic obstructive pulmonary disease, unspecified COPD type (CMS/HCC V24, CMS/HCC V28) (Primary Dx); Lung nodules; Kyphoscoliosis; Smoker; Abnormal chest CT 08/14/2025 Telephone Vascular Surgery - [place] [address] [place] [phone] Berny Saavedra MD 08/13/2025 Telephone Internal Medicine - [place] [facility] [address] [place] [phone] Ashutosh FallonLLUVIA 08/04/2025 9:45 AM EDT Office Visit Pulmonology - [place] 175 [facility] [address] [place] [phone] Juanita Clements MD Abnormal chest CT (Primary Dx); Chronic obstructive pulmonary disease, unspecified COPD type ([facility] V24, [facility] V28); Bronchiectasis without acute exacerbation ([facility] V24, [facility] V28); Kyphoscoliosis; Smoker 08/04/2025 Telephone Vascular Surgery - [place] [address] [facility] [address] [place] [phone] Berny Saavedra MD 08/01/2025 11:00 AM EDT Consult Vascular Surgery - [place] 300 [facility] [address] [place] [phone] Berny Saavedra MD Critical limb ischemia of right lower extremity with ulceration of foot ([facility] V24, [facility] V28) (Primary Dx); Absent pedal pulses; PAD (peripheral artery disease) ([facility] V24); Type II diabetes mellitus with peripheral circulatory disorder ([facility] V24, [facility] V28); Stenosis of left carotid artery 07/31/2025 1:15 PM EDT Office Visit Orthopedic Surgery - [facility] [address] [facility] [address] [place] [phone] Aime Mendoza, DPM Type II diabetes mellitus with peripheral circulatory disorder ([facility] V24, [facility] V28) (Primary Dx); Ingrowing nail; Cellulitis of great toe, right; Gangrene ([facility] V24, [facility] V28); Ulcer of toe of right foot, with fat layer exposed ([facility] V24, [facility] V28) 07/24/2025 Telephone Internal Medicine - [place] [address] [phone] Iam Gee MD 07/22/2025 10:32 AM EDT - 07/22/2025 11:59 PM EDT Hospital Encounter CT Scan - [address] [phone] Lung nodules; Abnormal CT of the chest Discharge Disposition: Home or Self Care 07/17/2025 8:30 AM EDT Office Visit Pulmonology [address] [phone] Juanita Clements MD Chronic obstructive pulmonary disease, unspecified COPD type ([facility] V24, [facility] V28) (Primary Dx); Pulmonary emphysema, unspecified emphysema type ([facility] V24, [facility] V28); Restrictive lung disease; Kyphoscoliosis; Lung nodules; Abnormal CT of the chest 07/11/2025 9:37 AM EDT - 07/11/2025 11:59 PM EDT Hospital Encounter [facility] 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 [address] [place] [address] 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 Discharge Disposition: Home or Self Care 07/09/2025 Telephone Internal Medicine [address] [phone] Fallon Boykin [place] 07/08/2025 Telephone Internal Medicine [address] [phone] Fallon Boykin [place] 07/07/2025 [facility] [address] [phone] Iam Gee MD 07/03/2025 [facility] [address] [phone] Iam Gee MD 06/26/2025 [facility] [address] [phone] Fallon Boykin [place] 06/19/2025 10:30 AM EDT Office Visit Internal Medicine [address] [phone] Iam Gee MD Infection of nail bed of toe of left foot (Primary Dx); Dressing change or removal, nonsurgical wound; Diabetic polyneuropathy associated with diabetes mellitus due to underlying condition ([facility] V24, [facility] V28) 06/18/2025 Telephone Internal Medicine - [place] [address] [facility] [address] [place] [phone] Iam Gee MD 06/12/2025 [facility] [address] [facility] [address] [place] [phone] Fallon Boykin [place] 06/10/2025 10:10 AM EDT Office Visit [facility] [address] [facility] [address] [place] [phone] Faye Cruz, ROSETTA Atrial fib/flutter, transient ([facility] V24, 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 06/09/2025 [facility] 175 [facility] 200 [place] [phone] Iam Gee MD from Last 3 Months Surgical History Surgery Date Site/Laterality Comments OTHER SURGICAL HISTORY 12/2017 PROCEDURE: TRACHEOSTOMY OR LARNGECTOMY OTHER SURGICAL HISTORY PROCEDURE: ---- OTHER ----; COMMENT: Left hemiglossectomy and left mandibulectomy, modified radical neck dissectiontype III, R ALT free flap and STSG Medical History Medical History Date Comments Alcohol abuse 08/14/2018 DX:Alcohol abuse Atrial fibrillation ([facility] V24, [facility] V28) 08/28/2018 DX:Atrial fibrillation (HCC) ; COMMENT: On anticoagulant, coumadin. Cancer of mouth ([facility] V24 , [facility] V28) 08/14/2018 DX:Cancer of mouth (HCC) Hypertension 08/14/2018 DX:Hypertension Hyperlipidemia 03/01/2018 DX:Hyperlipidemi a Pulmonary nodules 03/01/2018 DX:Pulmonary n odules Seizure disorder ([facility] V2 4, [facility] V28) 08/15/2018 DX:Seizure disorder ([facility]) Diabetic neuropathy ([facility] V24, [facility] V28) 08/14/2018 DX:Diabetic neuropathy ([facility]) Asthma 11/29/2016 DX:Asthma Diabetes mellitus type 2 wit h neurological manifestations ([facility] V24, [facility] V28) 06/12/2018 DX:Diabetes mellitus type 2 with neurological manifestations (HCC) CKD (chronic kidney disease) stage 3, GFR 30-59 ml/min ([facility] V24, [facility] V28) 12/28/2018 DX:CKD (chronic kidney disea se) stage 3, GFR 30-59 ml/min ([facility]) Type 2 diabetes mellitus wit h renal manifestations ([facility] V24, [facility] V28) 12/28/2018 DX:Type 2 diabetes mellitus with renal manifestations ([facility]) Alcohol use with alcohol-ind uced disorder ([facility] V24) DX:Alcohol use with alcohol- induced disorder ([facility]) Anemia DX:Anemia Bronchitis DX:Bronchitis Social History Tobacco Use Types Packs/Day Years Used Date Smoking Tobacco: Every Day Cigarettes 1 76.8 Started: 11/02/1947 Smokeless Tobacco: Never Tobacco Cessation:Ready to Q uit: Not Asked; Counseling Given: Not Answered Alcohol Use Standard Drinks/Week Comments Yes 30 (1 standard drink = 0.6 oz pu re alcohol) Interpersonal Safety Answer Date Record ed Physical Abuse Unrecognized value 01/28/2025 Verbal Abuse Unrecognized value 01/28/2025 Comments Unknown Sex and Gender Information Value Date Recorded Sex Assigned at Female 01/07/2025 3:12 PM EST Legal Sex Female 7:04 AM EST Gender Identity Female 01/07/2025 3:12 PM EST Sexual Orientation Straight 01/07/2025 3: 12 PM EST Obstetrics History Last Filed Vital Signs Vital Sign Reading Time Taken Comments Blood Pressure 180/49 08/19/2025 11:42 AM EDT Pulse 69 08/19/2025 11:42 AM EDT Temperature 36.4 C (97.6 F) 08/19/2025 6:42 AM EDT Respiratory Rate 15 08/19/2025 11:42 AM EDT Oxygen Saturation 96% 08/19/2025 10:42 AM EDT Inhaled Oxygen Concentration - - Weight 49 kg (108 lb) 08/19/2025 6:31 AM EDT Height 172.7 cm (5' 8 ) 08/19/2025 6:31 AM EDT Body Mass Index 16.42 08/19/2025 6:31 AM EDT Plan of Treatment Upcoming Encounters Date Type Department Care Team (Late st Contact Info) Description 08/28/2025 10:30 AM EDT Office Visit Orthopedic Surgery [place] [address] [address] [facility] [address] [place] [phone] Aime Mendoza DPYosef 175 [facility] [address] [place] [phone] 09/12/2025 2:30 PM EDT Office Visit Vascular Surgery - [place] [address] [facility] [address] [place] [address] Berny Saavedra MD [address] [place] [address] 10/13/2025 8:45 AM EST Office Visit Internal Medicine - [place] [facility] 200 [place] [phone] Iam Gee MD [address] [address] 11/05/2025 8:30 AM EST Office Visit Gastroenterology - [place] [address] [phone] Elise Savage PA [address] [address] 11/10/2025 9:15 AM EST Office Visit Pulmonology - [place] [address] [phone] Juanita Clements MD [address] [address] 01/05/2026 8:00 AM EST Office Visit Pulmonology - [place] [address] [phone] Juanita Clements MD [address] [address] 03/03/2026 9:00 AM EDT Ancillary Procedure [facility] [address] [facility] [address] [place] [address] Health Maintenance Due Date Last Done Comments COVID-19 Vaccine (#1) 1941 Diabetes: Annual Foot Exam 1946 Diabetes: Annual Retina Eye Exam 1946 Hepatitis A Vaccines (1 of 2 - Risk 2-dose series) 1955 Pneumococcal Vaccine: 50+ Years (1 of 2 - PCV) 1955 Zoster Vaccines (1 of 2) 1955 RSV Immunization Adult Patients (1 - 1-dose 75+ series) 2011 Medicare Annual Wellness Visit 11/03/2022 Osteoporosis Screening (Bone Density Screening) 11/03/2022 Social Influencers of Health Screening 11/03/2022 Diabetes: Blood Sugar Control Test (HGBA1C) 11/12/2022 06/11/2019 Depression Screening 11/27/2024 Influenza Vaccine (#1) 2025 Falls Risk Assessment 02/04/2026 02/04/2025 Hypertension/CHF/CAD Annual BMP Blood Test 08/19/2026 08/19/2025, 03/03/2025, 02/24/2025, Additional history exists Cholesterol Screening (Lipid Panel) 07/03/2029 07/03/2024, 07/03/2024 DTaP,Tdap,and Td Vaccines (2 - Td or Tdap) 01/02/2033 01/02/2023 HIB Vaccines Aged Out No longer eligi ble based on patient's age to complete this topic HPV Vaccines Aged Out No longer eligi ble based on patient's age to complete this topic Hepatitis B Vaccines Aged Out No long er eligible based on patient's age to complete this topic IPV Vaccines Aged Out No longer eligi ble based on patient's age to complete this topic MMR Vaccines Aged Out No longer eligi ble based on patient's age to complete this topic Meningococcal ACWY Vaccine Aged Out N o longer eligible based on patient's age to complete this topic Meningococcal B Vaccine Aged Out No l onger eligible based on patient's age to complete this topic RSV Immunization Patients Under 20 months Aged Out No longer eligible based on patient's age to complete this topic Varicella Vaccines Aged Out No longer eligible based on patient's age to complete this topic Medical Devices Implanted Type Area Rug Cleaner Device Identifier Shelf Expiration Date Model / Serial / Lot Lead Pcmk Tendril Sts [id number] - [id number] - [id number] Implanted:Qty: 1 on 01/29/2025 by Dimitris Burrell MD at [facility] Cardiac Lead N/A: Heart [facility] [employer] [id number] 07/27/2027 2088TC/52 / [id number] / Lead Pcmk Tendril Sts [id number] - [id number] - [id number] Implanted:Qty: 1 on 01/29/2025 by Dimitris Burrell MD at [facility] Cardiac Lead N/A: Heart [facility] [employer] [id number] 09/26/2027 2088TC/58 / [id number] / Pcmkr Assurity Mri Dr-Rf Dual - [id number] - [id number] Implanted:Qty: 1 on 01/29/2025 by Dimitris Burrell MD at [facility] Cardiac Pacemaker Left: Chest Wall [facility] [employer] [id number] 04/26/2026 [id number] / [id number] / Abbt-Stju Assurity Mri [id number] Implanted:03/2025 (Quantity not on file) Cardiac Pacemaker [facility] [employer] MRI 2272 / [id number] / Abbt-Stju 2272 Assurity Mri(Tm) [id number] Implanted:03/2025 (Quantity not on file) Cardiac Pacemaker [facility] [employer] 2272 ASSURITY MRI(TM) / [id number] / Procedures Procedure Name Priority Date/Time Associated Diagnosis Comments INVASIVE VASCULAR PROCEDURE Routine 08/19/2025 8:55 AM EDT Absent pedal pulses CBC WITH AUTO DIFFERENTIAL Routine 08/19/2025 6:41 AM EDT ACTIVATED PARTIAL THROMBOPLASTIN TIME Routine 08/19/2025 6:41 AM EDT PROTHROMBIN TIME WITH INR Routine 08/19/2025 6:41 AM EDT CBC AND DIFFERENTIAL Routine 08/19/2025 6:41 AM EDT BASIC METABOLIC PANEL Routine 08/19/2025 6:[address] CHEST WO CONTRAST Routine 07/22/2025 10:44 AM EDT Lung nodules Abnormal CT of the chest HC SPIROMETRY BRONCHODILATION RESPONSIVENESS PRE/POST 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 Routine 07/11/2025 10:40 AM EDT [facility] current use of amiodarone ECG 12-LEAD Routine 06/10/2025 12:18 PM EDT Atrial fib/flutter, transient (CMS/HCC V24, CMS/HCC V28) LIPID PANEL Routine 07/03/2024 HEMOGLOBIN A1C Routine 06/11/2019 from Last 3 Months or Most Recently Relevant to Health Maintenance Results * ANGIOGRAPHY LOWER EXT RIGHT (08/19/2025 8:55 AM EDT) Anatomical Region Laterality Modality X-Ray Angiograph y Narrative 08/21/2025 4:48 PM EDT Per op note Study Details Patient has severe bilateral leg pain with PAD Clinical Background Per H&P Procedure Details Per op note Berny Saavedra MD CV INVASIVE VASCULAR PROCEDURES Final Result * (ABNORMAL) CBC auto differential (08/19/2025 6:41 AM EDT) WBC 5.6 4.8 - 10.8 K/mcL LAB HEMETOLOGY METHOD 08/19/2025 7:11 AM EDT [facility] RBC 3.60(L) 3.80 - 4.80 M/mcL LAB HEMETOLOGY METHOD 08/19/2025 7:11 AM EDT [facility] Hemoglobin 11.9 11.5 - 16.0 g/dL LAB HEMETOLOGY METHOD 08/19/2025 7:11 AM [facility] Hematocrit 34.9(L) 35.0 - 47.0 % LAB HEMETOLOGY METHOD 08/19/2025 7:11 AM [facility] MCV 96.7 79.0 - 98.0 FL LAB HEMETOLOGY METHOD 08/19/2025 7:11 AM [facility] MCH 33.0(H) 27.0 - 32.0 pcg LAB HEMETOLOGY METHOD 08/19/2025 7:11 AM [facility] MCHC 34.1 32.0 - 37.0 g/dL LAB HEMETOLOGY METHOD 08/19/2025 7:11 AM [facility] RDW 15.5(H) 11.0 - 15.0 % LAB HEMETOLOGY METHOD 08/19/2025 7:11 AM [facility] Platelets 147 130 - 400 K/mcL LAB HEMETOLOGY METHOD 08/19/2025 7:11 AM [facility] MPV 10.3 7.0 - 11.0 FL LAB HEMETOLOGY METHOD 08/19/2025 7:11 AM [facility] NRBC 0.0 <1.0 % LAB HEMETOLOGY METHOD 08/19/2025 7:11 AM [facility] NRBC Absolute 0.00 <0.10 K/mcL LAB HEMETOLOGY METHOD 08/19/2025 7:11 AM [facility] Neutrophils Relative 57.3 % LAB HEMETOLOGY METHOD 08/19/2025 7:11 AM [facility] Lymphocytes Relative 31.3 % LAB HEMETOLOGY METHOD 08/19/2025 7:11 AM [facility] Monocytes Relative 9.6 % LAB HEMETOLOGY METHOD 08/19/2025 7:11 AM EDT [facility] Eosinophils Relative 1.2 % LAB HEMETOLOGY METHOD 08/19/2025 7:11 AM EDT [facility] Basophils Relative 0.4 % LAB HEMETOLOGY METHOD 08/19/2025 7:11 AM [facility] Immature Granulocytes Relative 0.2 % LAB HEMETOLOGY METHOD 08/19/2025 7:11 AM EDT [facility] Neutrophils Absolute 3.23 1.50 - 7.00 K/mcL LAB HEMETOLOGY METHOD 08/19/2025 7:11 AM EDT [facility] Lymphocytes Absolute 1.76 1.00 - 5.00 K/mcL LAB HEMETOLOGY METHOD [facility] Monocytes Absolute 0.54 0.20 - 1.00 K/mcL LAB HEMETOLOGY METHOD 08/19/2025 7:11 AM EDT [facility] Eosinophils Absolute 0.07 0.00 - 0.50 K/mcL LAB HEMETOLOGY METHOD 08/19/2025 7:11 AM T [facility] Basophils Absolute 0.02 0.00 - 0.20 K/mcL LAB HEMETOLOGY METHOD 08/19/2025 7:11 AM [facility] Immature Granulocytes Absolute 0.01 0.00 - 0.03 K/mcL LAB HEMETOLOGY METHOD 08/19/2025 7:11 AM EDT [facility] Blood Venous blood specimen / Unknown Venipuncture / Unknown 08/19/2025 6:41 AM EDT 08/19/2025 7:02 AM EDT us Berny Saavedra MD LAB BLOOD ORDERABLES Final Resu lt [facility] [address] [place] [address], * Activated partial thromboplastin time (08/19/2025 6:41 AM EDT) Pathologist [facility] aPTT 31.2 24.1 - 39.3 sec LAB COAGULATION METHOD 08/19/2025 7:17 AM EDT [facility] Blood Venous blood specimen / Unknown Venipuncture / Unknown 08/19/2025 6:41 AM EDT 08/19/2025 7:02 AM EDT us Berny Saavedra MD LAB BLOOD ORDERABLES Final Resu lt [facility] [address] [place] [address], [place] [phone] * Prothrombin time with INR (08/19/2025 6:41 AM EDT) [facility] Protime 12.0 10.6 - 13.9 sec LAB COAGULATION METHOD 08/19/2025 7:17 AM EDT [facility] INR 1.0 LAB COAGULATION METHOD 08/19/2025 7:17 AM EDT [facility] Blood Venous blood specimen / Unknown Venipuncture / Unknown 08/19/2025 6:41 AM EDT 08/19/2025 7:02 AM EDT us Berny Saavedra MD LAB BLOOD ORDERABLES Final Resu lt [facility] [address] [place] [address], [place] [phone] * (ABNORMAL) Basic metabolic panel (08/19/2025 6:41 AM EDT) [facility] Sodium 131(L) 133 - 145 mmol/L LAB CHEMISTRY METHOD 08/19/2025 7:27 AM EDT [facility] Potassium 4.0 3.5 - 5.5 mmol/L LAB CHEMISTRY METHOD 08/19/2025 7:27 AM [facility] Chloride 92(L) 96 - 110 mmol/L LAB CHEMISTRY METHOD 08/19/2025 7:27 AM [facility] CO2 29 21 - 32 mmol/L LAB CHEMISTRY METHOD 08/19/2025 7:27 AM [facility] Anion Gap 10 3 - 11 LAB CHEMISTRY METHOD 08/19/2025 7:27 AM [facility] Glucose 91 70 - 100 mg/dL LAB CHEMISTRY METHOD 08/19/2025 7:27 AM [facility] BUN 11 5 - 25 mg/dL LAB CHEMISTRY METHOD 08/19/2025 7:27 AM [facility] Creatinine 0.91 0.50 - 1.10 mg/dL LAB CHEMISTRY METHOD 08/19/2025 7:27 AM [facility] eGFR 60 >=60 mL/min/1. 73m2 LAB CHEMISTRY METHOD 08/19/2025 7:27 AM [facility] Comment:Calculation based on the Chronic Kidney Disease Epidemiology Collaboration (CKD-EPI) equation refit without adjustment for race. BUN/Creatinine Ratio 12.1 LAB CHEMISTRY METHOD 08/19/2025 7:27 AM [facility] Calcium 9.3 8.5 - 10.5 mg/dL LAB CHEMISTRY METHOD 08/19/2025 7:27 AM [facility] Blood Venous blood specimen / Unknown Venipuncture / Unknown 08/19/2025 6:41 AM EDT 08/19/2025 7:02 AM EDT us Berny Saavedra MD LAB BLOOD ORDERABLES Final Resu lt [facility] [address] [place] [address], * CT Chest wo Contrast (07/22/2025 10:44 AM EDT) Anatomical Region Laterality Modality Body Computed Tomogra phy 07/22/2025 4:28 PM EDT Narrative 07/22/2025 5:[address] without intravenous contrast. History rule out pneumonia effusion or abscess in the left lower lobe. Examination was performed on multidetector scanner without administration of intravenous contrast. Prior CTA of the chest from 08/07/2024 was reviewed. There is volume loss in the left hemithorax. There is hyperinflation of the right lung. There is centrilobular emphysema. Central airways are patent. There is narrowing of the right lower lobe bronchus but appreciated on the coronal images. No focal endobronchial lesions were identified. There is peribronchial thickening in the central zones bilaterally.. There is stable pleuroparenchymal scarring at the right apex. There is arm interval enlargement of the subpleural nodular opacity at the right apex posteriorly which on today's study measures arm 1.3 x 0.9 cm. There is stable 5 mm groundglass opacity in the right upper lobe posteriorly, axial image 98. There is irregular shaped stellated lesion with cystic changes in the superior segment of the right lower lobe with interval decrease in the wall thickness and enlarged cystic spaces, measures 2.1 x 1.8 cm, axial image 110. There is irregular shaped lesion with cystic spaces at the left apex measuring approximately 1.5 x 1.2 cm, axial image #42. Cystic spaces appear to be larger than on prior study. There is irregular shaped stellated lesion with cystic spaces in the superior segment of the left upper lobe measuring 1.5 x 1.4 cm on axial image 161. There are coarse linear densities extremity extending from this lesion to the pleural surface as it was demonstrated on previous study. There is pleural thickening in the left lower lobe measuring up to 1.7 cm in thickness with some rounded component posteriorly laterally measuring 2 x 1.5 cm, probably representing rounded atelectasis. There is pleural thickening in the right lower lobe posteriorly, unchanged. There is also atelectasis versus scarring at the right base laterally as well as in the anterior inferior lingula. Previously noted rounded groundglass opacity in the right lower lobe anterior laterally measuring 1.2 x 1.1 cm unchanged since previous examination, axial image 259. No new focal abnormalities were identified. There are atherosclerotic calcifications in the thoracic aorta and branches. There are severe calcifications of the coronary arteries. Proximal Ascending aorta measures up to 4 cm in diameter. Visualized portions of the abdominal organs are stable in the appearance. Bony structures revealed multilevel degenerative changes. CONCLUSIONS: Volume loss in the arm left hemithorax. Narrowing of the left lower lobe bronchus. Probably stable irregular shaped bilateral lesion centimeters cystic spaces. Measurements are not customer service representative teller, due to irregular shapes. Stable groundglass opacity nodule in the right lower lobe. Stable chronic pleural changes more prominent in the left lower lobe with possible round atelectasis. Atherosclerotic changes. Dilatation of the ascending aorta. Please correlate clinically. -------- FINAL REPORT -------- Dictated By: Latanya Stevenson Dictated Date: 07/22/2025 16:28 ET Assigned Physician: Latanya Stevenson Reviewed and Electronically Signed By: Latanya Stevenson Signed Date: 07/22/2025 17:52 ET Workstation ID: [id number] Transcribed By: Self Edit Transcribed Date: 07/22/2025 16:28 ET Procedure Note Latanya Stevenson MD - 07/22/[address] without intravenous contrast. History rule out pneumonia effusion or abscess in the left lower lobe. Examination was performed on multidetector scanner without administrationof intravenous contrast. Prior CTA of the chest from 08/07/2024 wasreviewed. There is volume loss in the left hemithorax. There is hyperinflation ofthe right lung. There is centrilobular emphysema. Central airways arepatent. There is narrowing of the right lower lobe bronchus butappreciated on the coronal images. No focal endobronchial lesions wereidentified. There is peribronchial thickening in the central zonesbilaterally.. There is stable pleuroparenchymal scarring at the rightapex. There is arm interval enlargement of the subpleural nodular opacityat the right apex posteriorly which on today's study measures arm 1.3 x0.9 cm. There is stable 5 mm groundglass opacity in the right upper lobeposteriorly, axial image 98. There is irregular shaped stellated lesion with cystic changes in thesuperior segment of the right lower lobe with interval decrease in thewall thickness and enlarged cystic spaces, measures 2.1 x 1.8 cm, axialimage 110. There is irregular shaped lesion with cystic spaces at the left apexmeasuring approximately 1.5 x 1.2 cm, axial image #42. Cystic spacesappear to be larger than on prior study. There is irregular shaped stellated lesion with cystic spaces in thesuperior segment of the left upper lobe measuring 1.5 x 1.4 cm on axialimage 161. There are coarse linear densities extremity extending from thislesion to the pleural surface as it was demonstrated on previous study. There is pleural thickening in the left lower lobe measuring up to 1.7 cmin thickness with some rounded component posteriorly laterally measuring 2x 1.5 cm, probably representing rounded atelectasis. There is pleuralthickening in the right lower lobe posteriorly, unchanged. There is alsoatelectasis versus scarring at the right base laterally as well as in theanterior inferior lingula. Previously noted rounded groundglass opacity in the right lower lobeanterior laterally measuring 1.2 x 1.1 cm unchanged since previousexamination, axial image 259. No new focal abnormalities wereidentified. There are atherosclerotic calcifications in the thoracic aorta andbranches. There are severe calcifications of the coronary arteries.Proximal Ascending aorta measures up to 4 cm in diameter. Visualized portions of the abdominal organs are stable in the appearance.Bony structures revealed multilevel degenerative changes. CONCLUSIONS: Volume loss in the arm left hemithorax. Narrowing of the leftlower lobe bronchus. Probably stable irregular shaped bilateral lesioncentimeters cystic spaces. Measurements are not customer service representative teller, due toirregular shapes. Stable groundglass opacity nodule in the right lowerlobe. Stable chronic pleural changes more prominent in the left lower lobewith possible round atelectasis. Atherosclerotic changes. Dilatation of the ascending aorta. Pleasecorrelate clinically. -------- FINAL REPORT -------- Dictated By: Latanya Stevenson Dictated Date: 07/22/2025 16:28 ET Assigned Physician: Latanya Stevenson Reviewed and Electronically Signed By: Latanya Stevenson Signed Date: 07/22/2025 17:52 ET Workstation ID: [id number] Transcribed By: Self Edit Transcribed Date: 07/22/2025 16:28 ET us Yin Cuate Hung MD IMG CT PROCEDURES Final Result * Pulmonary function testing: Other (Specify); Amiodarone surveillance (07/11/2025 10:40 AM EDT) Juanita Jones MD - 07/11/2025 7:00 PM EDT Table formatting from the original result was not included. Images from the original result were not included. [facility] [address] [place] [id number] Pulmonary Functions Report Date of service: 07/11/25 Patient Name: Raine Kauffman Date of : 1935 Age: 89 y.o. 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 Other (Specify) Explanatory Comment: Amiodarone surveillance Pulmonary Test Finding: Spirometry/ Flow Volume Loop: FEV1 is 1.07 at 53 % of predicted., FVC is 76 % of predicted. , FEV1/FVC ratio is 52 % of predicted. Spirometry Post Bronchodilator Response: No bronchodilator response. Lung Volumes: TLC is 64 % of predicted. RV is 56 % of predicted. RV/TLC is is 87 % of predicted. Diffusion Capacity: DLCO is 35 % of predicted (Adjusted DLCO is 35 %). DLCO/VA is 47 % of predicted. Quality of Study: Meets ATS criteria for acceptability and repeatability Refer to scanned report for all additional results and graphs. Interpretation/Impression: Moderate obstruction. Moderate restriction. Moderate to severe decrease in diffusion. 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 Faye Cruz NP PFT ORDERABLES Final Result * ECG 12 lead (06/10/2025 12:18 PM EDT) Ventricular Rate ECG 62 BPM GEMUSE Atrial Rate 62 BPM GEMUSE P-R Interval 168 ms GEMUSE QRS Duration 164 ms GEMUSE Q-T Interval 554 ms GEMUSE QTc 562 ms GEMUSE P Wave [place] 84 degrees GEMUSE R [place] 75 degrees GEMUSE T [place] 35 degrees GEMUSE ECG Interpretation Atrial-sensed ventricular-pa arvind rhythm When compared with ECG of 30-JAN-2025 07:57, Electronic ventricular pacemaker has replaced Sinus rhythm Vent. rate has decreased BY 41 BPM Confirmed by STAR MATTHEWS ([id number]) on 07/16/2025 5:21:50 PM GEMUSE 06/10/2025 10:3 0 AM EDT 07/16/2025 5:21 PM EDT Faye Cruz CROWN AND BRIDGE TECHNICIAN ECG ORDERABLES Edited Resul t - Final GEMUSE * Lipid panel (07/03/2024) LDL/HDL Ratio 2 0 - 4 Triglycerides 91 0 - 150 mg/dL Cholesterol 112 0 - 200 mg/dL HDL 59 >=40 mg/dL LDL Cholesterol 35 0 - 100 mg/dL Blood Venous blood specimen / Unknown Historical Provider LAB BLOOD ORDERABLES Dora l Result * Hemoglobin A1c (06/11/2019) Hemoglobin A1C 5.8 <=6.5 % Blood Venous blood specimen / Unknown Historical Provider LAB BLOOD ORDERABLES Dora l Result from Last 3 Months or Most Recently Relevant to Health Maintenance Insurance [employer] Member Subscriber Plan / Payer (Ef fective 2023-Present) Name:RAINE KAUFFMAN Relation to Subscriber:Self Name:Raine Kauffman Payer ID:[id number] Group ID:[id number] Type:Not on file Address: [place] [id number] Advance Directives Documents on File Type Date Recorded 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 Expl 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 Health Care Decision (hx) 07/13/2023 AD HSU DIRECTIVE Health Care Decision (hx) 07/13/2023 AD HSU DIRECTIVE Health Care Decision (hx) 07/13/2023 AD HSU DIRECTIVE Health Care Decision (hx) 07/13/2023 AD HSU DIRECTIVE Health Care Decision (hx) 07/13/2023 AD HSU DIRECTIVE Health Care Decision (hx) 07/13/2023 AD HSU DIRECTIVE Health Care Decision (hx) 07/13/2023 AD HSU DIRECTIVE Health Care Decision (hx) 07/13/2023 AD HSU DIRECTIVE Health Care Decision (hx) 07/13/2023 AD HSU DIRECTIVE Health Care Decision (hx) 07/13/2023 AD HSU DIRECTIVE Health Care Decision (hx) 07/13/2023 Freddy Kauffman AD HSU DIRECTIVE Health Care Decision (hx) 12/02/2016 AD HSU DIRECTIVE Health Care Decision (hx) 12/02/2016 AD HSU DIRECTIVE Health Care Decision (hx) 12/02/2016 AD HSU DIRECTIVE Health Care Decision (hx) 12/02/2016 AD HSU DIRECTIVE Health Care Decision (hx) 12/02/2016 AD HSU DIRECTIVE Health Care Decision (hx) 12/02/2016 AD HSU DIRECTIVE Health Care Decision (hx) 12/02/2016 AD HSU DIRECTIVE Health Care Decision (hx) 12/02/2016 AD HSU DIRECTIVE Health Care Decision (hx) 12/02/2016 AD HSU DIRECTIVE Health Care Decision (hx) 12/02/2016 AD HSU DIRECTIVE Health Care Decision (hx) 12/02/2016 AD HSU DIRECTIVE Health Care Decision (hx) 12/02/2016 AD HSU DIRECTIVE Health Care Decision (hx) 12/02/2016 AD HSU DIRECTIVE Health Care Decision (hx) 12/02/2016 AD HSU DIRECTIVE Health Care Decision (hx) 12/02/2016 AD HSU DIRECTIVE Health Care Decision (hx) 12/02/2016 AD HSU DIRECTIVE Health Care Decision (hx) 12/02/2016 AD HSU DIRECTIVE Health Care Decision (hx) 12/02/2016 AD HSU DIRECTIVE Health Care Decision (hx) 12/02/2016 AD HSU DIRECTIVE * Full Code - Default (Latest Code Status on File) Date Activated Date Inactivated Comments 08/19/2025 8:56 AM 08/19/2025 5:42 PM This is orde r is used when code status has not been discussed with the patient, or code status is otherwise unknown/unconfirmed To update the patient's code status, place a code status order. Do not modify or discontinue any currently active code status orders. * Full Code - Default Date Activated Date Inactivated Comments 08/19/2025 6:35 AM 08/19/2025 8:56 AM This is orde r is used when code status has not been discussed with the patient, or code status is otherwise unknown/unconfirmed To update the patient's code status, place a code status order. Do not modify or discontinue any currently active code status orders. * Full Code - Default Date Activated Date Inactivated Comments 01/28/2025 4:24 PM 02/04/2025 7:23 PM This is order is used when code status has not been discussed with the patient, or code status is otherwise unknown/unconfirmed To update the patient's code status, place a code status order. Do not modify or discontinue any currently active code status orders. Care Teams Binding Cutter Synthetic Cloth Relationship Specialty Start Date End Date Iam Gee MD [address] [address] PCP - General Internal Medicine 12/30/24
--- OUTSIDE RECORDS SUMMARY | 2025-08-27 07:56 | XMS_ITS | Encounter Summary ---
Author Organization [facility] Address [address] [place] [address] Care Team Providers Care Over Short And Damage Clerk Name Role Phone Iam Gee MD Primary Care Provider [phone] Encounter Details Date Type Department Care Team ([facility] Contact Info) Description 02/05/[address] [facility] - Main Lab [address] [facility] [place] [address] Alan Longo MD [address] [place] [address] [address] [place], [phone] Anemia, unspecified Social History Tobacco Use [...] Upcoming Encounters Date Type Department Care Team ([facility] Contact Info) Description 08/28/2025 10:30 AM EDT Office Visit Orthopedic Surgery - [place] [address] [facility] [address] [place] [phone] Aime Mendoza DPYosef 175 [facility] [address] [place] [phone] 09/12/2025 2:30 PM EDT Office Visit Vascular Surgery - [place] [address] [place] [address] Berny Saavedra MD [address] [place] [address] 10/13/2025 8:45 AM EST Office Visit Internal Medicine - [place] 175 [facility] [address] [place] [phone] Iam Gee MD [address] [address] 11/05/2025 8:30 AM EST Office Visit Gastroenterology [address] [phone] Elise Savage PA [address] [address] 11/10/2025 9:15 AM EST Office Visit Pulmonology - [address] [phone] Juanita Clements MD [address] [address] 01/05/2026 8:00 AM EST Office Visit Pulmonology [facility] [address] [phone] Juanita Clements MD [address] [address] 03/03/2026 9:00 AM EDT Ancillary Procedure [facility] [address] [place] [address] documented as of this encounter Procedures Procedure Name Priority Date/Time Associated Diagnosis Comments COMPLETE BLOOD COUNT Routine 02/05/2025 5:49 AM EDT Anemia, unspecified BASIC METABOLIC PANEL Routine 02/05/2025 5:49 AM EDT Anemia, unspecified documented in this encounter Results * (ABNORMAL) Basic metabolic panel (02/05/2025 5:49 AM EDT) Sodium 135 133 - 145 mmol/L LAB CHEMISTRY METHOD 02/05/2025 11:57 AM [facility] Potassium 4.3 3.5 - 5.5 mmol/L LAB CHEMISTRY METHOD 02/05/2025 11:57 AM [facility] Chloride 100 96 - 110 mmol/L LAB CHEMISTRY METHOD 02/05/2025 11:57 AM [facility] CO2 25 21 - 32 mmol/L LAB CHEMISTRY METHOD 02/05/2025 11:57 AM [facility] Anion Gap 10 3 - 11 LAB CHEMISTRY METHOD 02/05/2025 11:57 AM [facility] Glucose 96 70 - 100 mg/dL LAB CHEMISTRY METHOD 02/05/2025 11:57 AM [facility] BUN 10 5 - 25 mg/dL LAB CHEMISTRY METHOD 02/05/2025 11:57 AM [facility] Creatinine 0.74 0.50 - 1.10 mg/dL LAB CHEMISTRY METHOD 02/05/2025 11:57 AM [facility] eGFR 78 >=60 mL/min/1. 73m2 LAB CHEMISTRY METHOD 02/05/2025 11:57 AM [facility] Comment:Calculation based on the Chronic Kidney Disease Epidemiology Collaboration (CKD-EPI) equation refit without adjustment for race. BUN/Creatinine Ratio 13.5 LAB CHEMISTRY METHOD 02/05/2025 11:57 AM EDT [facility] Calcium 8.4(L) 8.5 - 10.5 mg/dL LAB CHEMISTRY METHOD 02/05/2025 11:57 AM [facility] Blood Venous blood specimen / Unknown Venipuncture / Unknown 02/05/2025 5:49 AM EDT 02/05/2025 10:07 AM EDT us Alan Longo MD LAB BLOOD ORDERABLES Final Resul t [facility] [address] [place] [address], [place] [phone] * (ABNORMAL) Complete blood count (02/05/2025 5:49 AM EDT) WBC 5.9 4.8 - 10.8 K/mcL LAB HEMETOLOGY METHOD 02/05/2025 11:14 AM [facility] RBC 2.70(L) 3.80 - 4.80 M/mcL LAB HEMETOLOGY METHOD 02/05/2025 11:14 AM [facility] Hemoglobin 9.0(L) 11.5 - 16.0 g/dL LAB HEMETOLOGY METHOD 02/05/2025 11:14 AM [facility] Hematocrit 26.9(L) 35.0 - 47.0 % LAB HEMETOLOGY METHOD 02/05/2025 11:14 AM [facility] MCV 100.7(H) 79.0 - 98.0 FL LAB HEMETOLOGY METHOD 02/05/2025 11:14 AM [facility] MCH 33.7(H) 27.0 - 32.0 pcg LAB HEMETOLOGY METHOD 02/05/2025 11:14 AM [facility] MCHC 33.5 32.0 - 37.0 g/dL LAB HEMETOLOGY METHOD 02/05/2025 11:14 AM EDT [facility] RDW 14.4 11.0 - 15.0 % LAB HEMETOLOGY METHOD 02/05/2025 11:14 AM EDT [facility] Platelets 186 130 - 400 K/mcL LAB HEMETOLOGY METHOD 02/05/2025 11:14 AM EDT [facility] MPV 9.8 7.0 - 11.0 FL LAB HEMETOLOGY METHOD 02/05/2025 11:14 AM EDT [facility] NRBC 0.0 <1.0 % LAB HEMETOLOGY METHOD 02/05/2025 11:14 AM EDT [facility] NRBC Absolute 0.00 <0.10 K/mcL LAB HEMETOLOGY METHOD 02/05/2025 11:14 AM EDT [facility] Blood Venous blood specimen / Unknown Venipuncture / Unknown 02/05/2025 5:49 AM EDT 02/05/2025 10:07 AM EDT us Alan Longo MD LAB BLOOD ORDERABLES Final Resul t [facility] [address] [place] [address], documented in this encounter Visit Diagnoses Diagnosis Anemia, unspecified Encounter for adjustment or management of cardiac device documented in this encounter Care Teams Over Short And Damage Clerk Relationship Specialty Start Date End Date Iam Gee MD [address] [phone] PCP - General Internal Medicine 12/30/24 documented as of this encounter
--- OUTSIDE RECORDS SUMMARY | 2025-08-27 07:56 | XMS_ITS | Encounter Summary ---
Author Organization [facility] Address [address] [place] [address] Care Team Providers Care Mold Maker Helper Name Role Phone Iam Gee MD Primary Care Provider [phone] Reason for Visit * Reason Onset Date Comments Fax [facility], med list 08/19/2025 Encounter Details Date Type Department Care Team (Late st Contact Info) Description 08/19/2025 Telephone Internal Medicine - [place] 175 [facility] 200 [place] [phone] Iam Gee MD 175 [facility] 200 [place] [address] Social History Tobacco Use Types Packs/Day Years Used Date Smoking Tobacco: Every Day Cigarettes 1 76.8 Started: 11/02/1947 Smokeless Tobacco: Never Alcohol Use Standard Drinks/Week Comments Yes 30 [...] PM EST documented as of this encounter Progress Notes * Tammi Breaux MA - 08/22/2025 2:21 PM EDT Notes were faxed to fax number provided. * Geovanna Seth - 08/21/2025 10:10 AM EDT [facility] called again please check and needs vna/hospice Needs to send clinical notes Health Care proxy - Medication Demographic States this is a urgent request Called on the 19 of August * Estelle Botello - 08/19/2025 2:23 PM EDT [facility] hosp[facility] called and requested clinical notes because patients son would like hospice services for the patient and they need a face sheet, med list, and health care proxy form. Please advise Cb# [phone] documented in this encounter Plan of Treatment Upcoming Encounters Date Type Department Care Team (Late st Contact Info) Description 08/28/2025 10:30 AM EDT Office Visit Orthopedic Surgery - [place] 250 175 [facility] 250 [place] [phone] Aime Mendoza DPM 175 [facility] 250 [place] [phone] 09/12/2025 2:30 PM EDT Office Visit Vascular Surgery - [place] [address] [place] [phone] Berny Saavedra MD [address] [place] [phone] 10/13/2025 8:45 AM EST Office Visit Internal Medicine - [place] 175 [facility] [address] [place] [address] Iam Gee MD 175 [facility] 200 [place] [address] 11/05/2025 8:30 AM EST Office Visit Gastroenterology - [place] [address] [place] [phone] Elise Savage PA [address] [address] 11/10/2025 9:15 AM EST Office Visit Pulmonology - [place] [address] [phone] Juanita Clements MD [address] [address] 01/05/2026 8:00 AM EST Office Visit Pulmonology - [place] [address] [address] Juanita Clements MD [address] [address] 03/03/2026 9:00 AM EDT Ancillary Procedure [facility] - [facility] [address] [facility] 154 [place] [address] documented as of this encounter Visit Diagnoses Not on filedocumented in this encounter Care Teams Mold Maker Helper Relationship Specialty Start Date End Date Iam Gee MD [address] [address] PCP - General Internal Medicine 12/30/24 documented as of this encounter
--- OUTSIDE RECORDS SUMMARY | 2025-08-27 07:56 | XMS_ITS | Encounter Summary ---
Author Organization [facility] Address [address] [place] [address] Care Team Providers Care Interdisciplinary Professor Name Role Phone Iam Gee MD Primary Care Provider [phone] Encounter Details Date Type Department Care Team ([facility] Contact Info) Description 02/09/2025 Lab Requisition [facility] - Main Lab 299 [facility] [place] [address] Alan Longo MD [address] [place] [address] [address] [place], [phone] Anemia, unspecified Social History Tobacco Use [...] Upcoming Encounters Date Type Department Care Team ([facility] Contact Info) Description 08/28/2025 10:30 AM EDT Office Visit Orthopedic Surgery - [place] 250 175 [facility] 250 [place] [phone] Aime Mendoza DPYosef 175 [facility] 250 [place] [phone] 09/12/2025 2:30 PM EDT Office Visit Vascular Surgery - [place] [address] [place] [address] Berny Saavedra MD 230 [place] [address] 10/13/2025 8:45 AM EST Office Visit Internal Medicine - [place] 175 [facility] 200 [place] [phone] Iam Gee MD [address] [address] 11/05/2025 8:30 AM EST Office Visit Gastroenterology [address] [phone] Elise Savage PA [address] [address] 11/10/2025 9:15 AM EST Office Visit Pulmonology - [address] [phone] Juanita Clements MD [address] [address] 01/05/2026 8:00 AM EST Office Visit Pulmonology [facility] [address] [phone] Juanita Clements MD [address] [address] 03/03/2026 9:00 AM EDT Ancillary Procedure [facility] - [address] [place] [address] documented as of this encounter Procedures Procedure Name Priority Date/Time Associated Diagnosis Comments COMPLETE BLOOD COUNT Routine 02/10/2025 5:12 AM EDT Anemia, unspecified BASIC METABOLIC PANEL Routine 02/10/2025 5:12 AM EDT Anemia, unspecified documented in this encounter Results * (ABNORMAL) Basic metabolic panel (02/10/2025 5:12 AM EDT) Sodium 134 133 - 145 mmol/L LAB CHEMISTRY METHOD 02/10/2025 12:[address] [facility] Potassium 3.7 3.5 - 5.5 mmol/L LAB CHEMISTRY METHOD 02/10/2025 12:[address] [facility] Chloride 93(L) 96 - 110 mmol/L LAB CHEMISTRY METHOD 02/10/2025 12:[address] [facility] CO2 27 21 - 32 mmol/L LAB CHEMISTRY METHOD 02/10/2025 12:[address] [facility] Anion Gap 14(H) 3 - 11 LAB CHEMISTRY METHOD 02/10/2025 12:[address] [facility] Glucose 116(H) 70 - 100 mg/dL LAB CHEMISTRY METHOD 02/10/2025 12:[address] [facility] BUN 24 5 - 25 mg/dL LAB CHEMISTRY METHOD 02/10/2025 12:[address] [facility] Creatinine 0.90 0.50 - 1.10 mg/dL LAB CHEMISTRY METHOD 02/10/2025 12:[address] [facility] eGFR 62 >=60 mL/min/1. 73m2 LAB CHEMISTRY METHOD 02/10/2025 12:55 PM EDT [facility] Comment:Calculation based on the Chronic Kidney Disease Epidemiology Collaboration (CKD-EPI) equation refit without adjustment for race. BUN/Creatinine Ratio 26.7 LAB CHEMISTRY METHOD 02/10/2025 12:55 PM EDT [facility] Calcium 9.1 8.5 - 10.5 mg/dL LAB CHEMISTRY METHOD 02/10/2025 12:55 PM T [facility] Blood Venous blood specimen / Unknown Venipuncture / Unknown 02/10/2025 5:12 AM EDT 02/10/2025 10:28 AM EDT us Alan Longo MD LAB BLOOD ORDERABLES Final Resul t [facility] [address] [place] [address], [place] [phone] * (ABNORMAL) Complete blood count (02/10/2025 5:12 AM EDT) WBC 12.2(H) 4.8 - 10.8 K/mcL LAB HEMETOLOGY METHOD 02/10/2025 11:[address] [facility] RBC 2.80(L) 3.80 - 4.80 M/mcL LAB HEMETOLOGY METHOD 02/10/2025 11:[address] [facility] Hemoglobin 9.3(L) 11.5 - 16.0 g/dL LAB HEMETOLOGY METHOD 02/10/2025 11:[address] [facility] Hematocrit 27.9(L) 35.0 - 47.0 % LAB HEMETOLOGY METHOD 02/10/2025 11:[address] [facility] MCV 100.0(H) 79.0 - 98.0 FL LAB HEMETOLOGY METHOD 02/10/2025 11:[address] [facility] MCH 33.3(H) 27.0 - 32.0 pcg LAB HEMETOLOGY METHOD 02/10/2025 11:11 AM EDT [facility] MCHC 33.3 32.0 - 37.0 g/dL LAB HEMETOLOGY METHOD 02/10/2025 11:11 AM EDT [facility] RDW 14.0 11.0 - 15.0 % LAB HEMETOLOGY METHOD 02/10/2025 11:11 AM EDT [facility] Platelets 194 130 - 400 K/mcL LAB HEMETOLOGY METHOD 02/10/2025 11:11 AM EDT [facility] MPV 10.3 7.0 - 11.0 FL LAB HEMETOLOGY METHOD 02/10/2025 11:11 AM EDT [facility] NRBC 0.0 <1.0 % LAB HEMETOLOGY METHOD 02/10/2025 11:11 AM EDT [facility] NRBC Absolute 0.00 <0.10 K/mcL LAB HEMETOLOGY METHOD 02/10/2025 11:11 AM EDT [facility] Blood Venous blood specimen / Unknown Venipuncture / Unknown 02/10/2025 5:12 AM EDT 02/10/2025 10:28 AM EDT us Alan Longo MD LAB BLOOD ORDERABLES Final Resul t [facility] [address] [place] [address], documented in this encounter Visit Diagnoses Diagnosis Anemia, unspecified Encounter for adjustment or management of cardiac device documented in this encounter Care Teams Interdisciplinary Professor Relationship Specialty Start Date End Date Iam Gee MD [address] [address] PCP - General Internal Medicine 12/30/24 documented as of this encounter
--- OUTSIDE RECORDS SUMMARY | 2025-08-27 07:56 | XMS_ITS | Encounter Summary ---
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 Phone Iam Gee MD Primary Care Provider [phone] Reason for Referral * Consultation (Routine) - Authorized Specialty Diagnoses / Procedures Referred By Contac t Referred To Contact Pulmonary Disease / Pulmonology Diagnoses Pleural effusion Iam Gee MD Phone: tel: fax: Juanita Clements MD [address] [address] Phone: tel: fax: Referral ID Status Reason Start Date Expiration Date Visits Requested Visits Authorized [id number] Authorized Specialty Services Required 07/24/2025 07/24/2026 12 12 Reason for Visit * Reason Onset Date Comments Referral 07/24/2025 Encounter Details Date Type Department Care Team ([facility] st Contact Info) Description 07/24/2025 Telephone Internal Medicine - [address] [phone] Iam Gee MD [address] [address] Social History Tobacco Use Types Packs/Day Years [...] 10:30 AM EDT Office Visit Orthopedic Surgery [facility] 250 175 [facility] [address] [place] [address] Aime Mendoza DPYosef [address] [address] 09/12/2025 2:30 PM EDT Office Visit Vascular Surgery [facility] [address] [facility] 210 [place] [address] Berny Saavedra MD [address] [place] [phone] 10/13/2025 8:45 AM EST Office Visit Internal Medicine [facility] 175 [facility] [address] 200 [place] [phone] Iam Gee MD [address] [address] 11/05/2025 8:30 AM EST Office Visit Gastroenterology - [place] [address] [phone] Elise Savage PA 175 [facility] 200 [place] [address] 11/10/2025 9:15 AM EST Office Visit Pulmonology - [place] 175 [facility] [address] [place] [address] Juanita Clements MD [address] [address] 01/05/2026 8:00 AM EST Office Visit Pulmonology - [place] 175 [facility] [address] [place] [address] Juanita Clements MD [address] [address] 03/03/2026 9:00 AM EDT Ancillary Procedure [facility] - [facility] [address] 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
--- OUTSIDE RECORDS SUMMARY | 2025-08-27 07:56 | XMS_ITS ---
Author Name [facility] Organization Unknown Care Team Organization Name Specialty Phone Email Start Date End Da te [facility] 07/16/2025 [facility] MYRA WELLS Primary Care 10/04/2022 07/15/20 24
--- OUTSIDE RECORDS SUMMARY | 2025-08-27 07:56 | XMS_ITS | Data Portability ---
Author Organization [facility], Main Office Address [address] [place] [address] Care Team Providers Care Physician/Ophthalmologist Name Role Phone [facility] OTHER PRISCILLA GEE Primary Care Provider Assessment Encounter Date Assessment Date Assessment LastModified by Organization Details LastModified Time 02/17/2025 02/17/2025 Labs 02/17: Na 133-k 4.4-bun 22- cr 0.9-wbc 12.7-hgb 8.4-hct 25.1-plt 397 Not available 02/17/2025 21:15:48 02/20/2025 02/20/2025 Labs 02/17: Na 133-k 4.4-bun 22- cr 0.9-wbc 12.7-hgb 8.4-hct 25.1-plt 397 Not available 02/20/2025 16:15:00 02/25/2025 02/25/2025 Labs 02/17: Na 133-k 4.4-bun 22- cr 0.9-wbc 12.7-hgb 8.4-hct 25.1-plt 397 Labs 02/24: Na 133-K 4.3-Bun 26-0.9-wbc 9.1-hgb 9.1-hct 28.4-plt 293 Not available 02/25/2025 16:35:46 02/28/2025 02/28/2025 Labs 02/17: Na 133-k 4.4-bun 22- cr 0.9-wbc 12.7-hgb 8.4-hct 25.1-plt 397 Labs 02/24: Na 133-K 4.3-Bun 26-0.9-wbc 9.1-hgb 9.1-hct 28.4-plt 293 Not available 02/28/2025 13:51:35 03/04/2025 03/04/2025 Spend 45 min coordination discharge. Labs 02/17: Na 133-k 4.4-bun 22- cr 0.9-wbc 12.7-hgb 8.4-hct 25.1-plt 397 Labs 02/24: Na 133-K 4.3-Bun 26-0.9-wbc 9.1-hgb 9.1-hct 28.4-plt 293 Labs 03/03: Na 139, K 4.1, Bun 26, Cr 1.04. Hgb 9, Plt 184 [email or web address] Not available 03/04/2025 11:14:41 Plan of Treatment Reminders Order Date Submit Date Provider Last Modified By Organization Details Last Modified Time Details Appointments None record ed. Lab None record ed. Referral None record ed. Procedures None record ed. Surgeries None record ed. Imaging None record ed. Medication Orders None record ed. Patient TargetsNo targets recorded. Patient InstructionsNo instructions recorded. Reason for Referral None Reported. Problems Name Problem SNOMED Code Status Onset Date Resolution Date Notes Provider Name and Address Organization Details Recorded Time Gastrointe stinal hemorrhage 97630884 Active 2024 Not Available [facility] 07:12:17 Uncomplica chiquita asthma 209260128 Active 2024 Not Available [facility] 09:43:29 Anemia 760609784 Active 2024 Not Available [facility] 5 09:43:30 Chronic kidney disease stage 3 524190760 Active 2024 Not Available [facility] 5 07:12:56 Complete atrioventr icular block 85731702 Active 2024 Not Available [facility] 5 07:08:08 Harmful pattern of use of alcohol 32135562 Active 2024 Not Available [facility] 5 09:45:26 Essential hypertensi on 73365260 Active 2024 Not Available [facility] 5 09:46:35 Hyperlipid emia 35011164 Active 2024 Not Available [facility] 5 09:47:25 Disorder of nervous system due to type 2 diabetes mellitus 756623166 Active 2024 Not Available [facility] 5 07:12:57 Peripheral vascular disease 134762817 Active 2024 Not Available [facility] 5 09:48:41 Aortic valve regurgitat ion 68279815 Active 2024 Not Available [facility] 5 09:49:17 Implantati on procedure Active 2024 placed 01/29/[address] SIM [id number] 07 Not Available [facility] 5 07:12:59 Seizure 38138585 Active 2024 Not Available [facility] 5 09:50:30 Paroxysmal atrial fibrillati on 263685200 Active 2024 Not Available [facility] 5 07:13:00 Malignant neoplasm of lip, oral cavity and pharynx 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 Active 2024 Not Available [facility] 5 09:53:34 Hypertroph ic cardiomyop athy 942702551 Active 2024 Not Available [facility] 5 12:37:34 Difficulty walking 257813620 Active 2024 Not Available [facility] 5 07:13:01 Muscle weakness 64987700 Active 2024 Not Available [facility] 5 07:13:02 Oropharyng eal dysphagia 27605338 Active 2024 Not Available [facility] 5 11:54:11 Chronic obstructiv e pulmonary disease 36523698 Active 2024 Not Available [facility] 5 07:12:15 Nicotine dependence 66412912 Active 2024 Not Available [facility] 5 03:49:42 Type 2 diabetes mellitus 96605006 Active 2024 SHIREEN COLINDRES [address], [address], [place], [address] , [facility] [employer] [facility] 5 23:53:19 Constipati on 54447999 Active 2024 Not Available [facility] 5 01:59:54 Problem Notes None recorded. Medical Equipment None Reported. Allergies No known drug allergies Medications Name Sig Start Date Stop Date Status Note LastModified by Organization Details LastModified Time silver sulfadiazin e 1 % topical cream Apply to Skin topically one time a day for DERMATOLO GICAL 2024 active Not Available Not Available Not Avai lable acetaminoph en 325 mg tablet Give 2 tablet by mouth every 8 hours as needed for Pain Do not exceed 3 grams in 24 hours.Tot al 650 mg AND Give 2 tablet by mouth every 8 hours as needed for Elevated Temperatu re > 100 Do not exceed 3 grams in 24 hours.Tot al 650mg 2024 active Not Available Not Available Not Avai lable prednisone 10 mg tablet Give 10 mg by mouth one time a day for CORTICOST EROID 2024 active Not Available Not Available Not Avai lable ipratropium 0.5 mg-albutero l 3 mg (2.5 mg base)/3 mL nebulizatio n soln 3 ml via vent four times a day for ANTI-ASTH MATIC AND BRONCO DILATOR 2024 active Not Available Not Available Not Avai lable amiodarone 200 mg tablet Give 200 mg by mouth one time a day for ANTI ARRHYTHMI C 2024 active Not Available Not Available Not Avai lable Nicoderm 14 mg/24 hr daily transdermal patch Apply 1 patch transderm ally one time a day remove old patch in AM and remove per schedule 2024 active Not Available Not Available Not Avai lable simvastatin 20 mg tablet Give 20 mg by mouth in the evening for ANTI HYPERLIPI DEMICS 2024 active Not Available Not Available Not Avai lable levetiracet am 750 mg tablet Give 750 mg by mouth two times a day for ANTI CONVULSAN T 2024 active Not Available Not Available Not Avai lable Laxative (sennosides ) 8.6 mg tablet Give 1 tablet by mouth every 24 hours as needed for Constipat ion 2024 active Not Available Not Available Not Avai lable budesonide 1 mg/2 mL suspension for nebulizatio n 2 ml inhale orally one time a day rinse mouth with water after use 2024 active Not Available Not Available Not Avai lable pantoprazol e DR 40 mg granules delayed-rel ease for susp in packet Give 40 mg by mouth two times a day for ULCER DRUGS/ANT ISPASMODI CS/ANTICH OLINERGIC Take 1 tablet 40 mg on an empty stomach, wait 30 minutes and then eat to activate medicatio n- before Breakfast and Super. 2024 active Not Available Not Available Not Avai lable thiamine mononitrate (vitamin B1) 100 mg tablet Give 100 mg by mouth one time a day for VITAMIN Take one table by mouth everyday. 2024 active Not Available Not Available Not Avai lable sodium phosphates 19 gram-7 gram/197 mL enema Insert 1 unit rectally every 24 hours as needed for Constipat ion Use only if Bisacodyl Supposito ry is ineffecti ve 2024 active Not Available Not Available Not Avai lable Eliquis 2.5 mg tablet Give 2.5 mg by mouth two times a day for ANTICOAGU LANT for 90 Days 05/06 completed Not Available Not Available Not Available chlorhexidi ne 4 %-isopropyl alcohol 4 % topical liquid Apply to mouth wash topically two times a day for MOUTH/THR OAT/DENTA L AGENTS, ANTISEPTI CS & DISINFECT ANT for 10 Days 02/15 completed Not Available Not Available Not Available metoprolol tartrate 75 mg tablet Give 75 mg by mouth two times a day for Anti- Hypertens jesika 2024 active Not Available Not Available Not Avai lable OneLAX Bisacodyl 10 mg rectal suppository Insert 1 supposito ry rectally every 24 hours as needed for constipat ion Use if Senna is Ineffecti ve 2024 active Not Available Not Available Not Avai lable Vitals Date Recorded Body height Heart rate Respiratory rate Body temperature Provider Name and Address Organization Details Last Updated DateTime 02/17/2025 170.18 cm 90 /min 17 /min 97.2 [degF] SHIREEN COLINDRES [address], [address], [place], [address] , [facility] 02/17/2025 20:54:38 Date Recorded Body height Respiratory rate Heart rate Systolic And Diastolic Provider Name and Address Organization Details Last Updated DateTime 02/20/2025 170.18 cm 20 /min 74 /min 110/62 mm[Hg] SHIREEN COLINDRES [address], [address], [place], [address] , [facility] 02/20/2025 16:13:56 Date Recorded Body height Body temperature Respiratory rate Heart rate Systolic And Diastolic Provider Name and Address Organization Details Last Updated DateTime 5 170.18 cm 97.4 [degF] 17 /min 75 /min 178/70 mm[Hg] SHIREEN COLINDRES [address], [address], [place], [address], [facility] 5 16:24:18 Date Recorded Body height Heart rate Respiratory rate Oxygen saturation Oxygen saturation in Arterial blood by Pulse oximetry Systolic And Diastolic Provider Name and Address Organization Details Last Updated DateTime 5 170.18 cm 76 /min 18 /min 95 % 95 % 151/68 mm[Hg] SHIREEN COLINDRES [address], [address], [place], [address], [facility] 5 13:58:05 Date Recorded Body height Body mass index (BMI) Body weight Heart rate Respiratory rate Body temperature Oxygen saturation Oxygen saturation in Arterial blood by Pulse oximetry Systolic And Diastolic Provider Name and Address Organization Details Last Updated DateTime 5 170.18 cm 19.6 kg/m2 64812.7 6 g 69 /min 17 /min 97.5 [degF] 95 % 95 % 152/62 mm[Hg] [facility] [address] , [address], [place], [address], [facility] 10:53:11 Social History Question Answer Notes LastModified by Organization Details LastModified Time Tobacco Smoking Status Current Every Day Smoker smoked [phone], recently restarted. Fallon Ray MD [address], [address], [place], [address], [facility] 03/02/2025 23:49:38 Do You Have An Advance Directive? Yes Information not available 02/06/2025 What Is Your Level Of Caffeine Consumption? None Information not available 02/06/2025 What Is Your Code Status? Full Code Information not available 02/06/2025 Where Do You Live? [place] Information not available 02/06/2025 Legal Guardian? No Informati on not available 03/02/2025 Do You Have A Medical Power Of Inspector [employer]? Yes Information not available 03/02/2025 What Was The Date Of Your Most Recent Tobacco Screening? 02/05/2025 Information not available 02/06/2025 Do You Have An Out Of Hospital DNR? No Information not available 03/02/2025 Have You Ever Been Counseled For Unhealthy Alcohol Use? Yes Information not available 03/02/2025 What Is Your Relationship Status? Information not available 02/06/2025 How Much Tobacco Do You Smoke? 0.5 PPD Information not available 03/02/2025 Has Tobacco Cessation Counseling Been Provided? Yes Information not available 03/02/2025 On What Date Was Tobacco Cessation Counseling Provided? 02/11/2025 Information not available 03/02/2025 Do You Have Any Dietary Restrictions? No Information not available 02/06/2025 How Many Days In The Past Year Have You Consumed 4 Or More Drinks? 300 Information not available 03/02/2025 Sex: Unknown Functional Status Question Answer Note LastModified by Organizat ion Details LastModified Time How many times per week do you consume alcohol? 5-7 times per week Information not available 02/06/2025 Do you use any illicit or recreational drugs? No Information not available 02/06/2025 Do you or have you ever used any other forms of tobacco or nicotine? No Information not available 02/06/2025 What is your level of alcohol consumption? Heavy Information not available 03/03/2025 Mental Status None recorded. Family History Nothing Reported Notes:n/c Medical History No medical history recorded. Gynecological HistoryNo gynecological history recorded. Obstetrics History GPAL:G 0 P 0 0 0 0 Immunizations Vaccine Type Date Status Note Provider Rufino ansari and Address Organization Details Recorded Time Tdap 01/02/2023 completed Kimber garcia [place] - [employer] 02/05/2025 16:48:30 Past Encounters Encounter ID Performer Location Encounter Start Date Encounter Closed Date Diagnosis/Indication Diagnosis SNOMED-CT Code Diagnosis ICD10 Code Diagnosis IMO Codes Diagnosis Note [id number] SHIREEN COLINDRES [address] [place] [address] 02/05/2025 11:02:12 02/06/2025 11:43:27 Gastrointestinal hemorrhage 12704997 K92.2 lower GIBcolonos copy/EGD needed once cleared by cards and cardiac and renal functions improves.H /H remained stablecont protonix Chronic ki dney disease stage 3 502149519 N18.30 LIDA initially 2.6improve d with IV fluids-> 0.7avoid nephrotoxi c meds 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 Chronic ob structive pulmonary disease 29026894 J44.9 cont Albuterol inhaler, neb tx prn, prednisone Paroxysmal atrial fibrillation 217157533 I48.0 cont amiodarone , eliquis Essential hypertension 98795409 I10 cont metoprolol Hyperlipidemia 99774531 E78.5 cont simvastati n Nicotine dependence 5629 4008 F17.200 cont nicotine patch Complete atrioventricular block 14509670 I44.2 bradycardi cnow with pacemakerP T/OT eval and txmorse 10 Type 2 opal betes mellitus 91852322 E11.9 appears to be diet controlled monitor accucheck prn [id number] ROSETTA BUENROSTRO [address] [place] [address] 02/10/2025 16:05:47 02/14/2025 08:33:41 Gastrointestinal hemorrhage 92846953 K92.2 lower GIBcolonos copy/EGD needed once cleared by cards and cardiac and renal functions improves.H /H remained stablecont protonixCN C 02/17 Complete atrioventricular block 61318837 I44.2 bradycardi cnow with pacemaker - monitor siteUpdate Cards with concernsFo llow up as sched.PT/O T eval and tx Chronic ki dney disease stage 3 889649735 N18.30 And LIDA Creat initially 2.6improve d with IV fluids-> 0.7avoid nephrotoxi c medsMonito r - BMP 02/17 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 Chronic ob structive pulmonary disease 15831117 J44.9 cont Albuterol inhaler, neb tx prn, prednisone Checking with PCP re: chronic prednisone use - pt. does not recall taking Paroxysmal atrial fibrillation 717246304 I48.0 cont amiodarone , eliquisMon itor VS/CP status, bleeding risk Essential hypertension 60613126 I10 cont metoprolol monitor VS Hyperlipidemia 57911820 E78.5 cont simvastati n Nicotine dependence 5629 4008 F17.200 cont nicotine patch Type 2 opal betes mellitus 32958061 E11.9 appears to be diet controlled monitor accucheck prn Leukocytosis 395592004 D 72.829 mild - 12.2Is on prednisone 10 mg qd, but also with coughPlan -repeat CBC in 1 weekmonito r closely for s/s infectionC heck with PCP re: prednisone use, pt. does not recall being on this on a daily basis Acute hyponatremia 94464 02 E87.1 Mild - 134Trend - repeat BMP in 1 wk Constipation 66694202 K5 9.00 add senna-plus 2 tabs dailyencou rage fluids and activitymo nitor and adjust meds prn [id number] MD RADHA Zuluaga [address] [place] [address] 02/11/2025 17:47:45 02/20/2025 15:33:18 Constipation 62405253 K59.00 Continue bowel meds as ordered.Mo nitor bowel function. Gastrointe stinal hemorrhage 86929152 K92.2 With hx of lower GIB, but none inpt.Will need colonoscop y and EGD once recovered. Continue pantoprazo le 40 mg BID (was cancelled after admission for some reason, will need to restart).M onitor labs and bowel function. Complete atrioventricular block 18128148 I44.2 Now with pacemaker. Monitor HR and wound site.F/U with cardio as planned. 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 Seizure 77284703 R56.9 No recent seizures.C ontinue keppra 750 mg BID.Monito r for seizure activity. Chronic ob structive pulmonary disease 27696043 J44.9 Currently at baseline.C ontinue prednisone 10 mg qd, duonebs qid and budesonide neb qd.Monitor resp status. Paroxysmal atrial fibrillation 335777533 I48.0 Rate in good control on metoprolol 75 mg BID and amiodarone 200 mg qd.Continu e eliquis 2.5 mg BID for AC.Monitor HR and bleeding risk. Essential hypertension 19744089 I10 BP in good control on meds as above.BP goal for this elderly woman is permissive HTN, with SBP<150 and DBP<90Moni tor BP and labs. Hyperlipidemia 46680739 E78.49 9855980 Continue simvastati n 20 mg qd.Monitor as outpt. Nicotine dependence 5629 4008 F17.200 Continue nicotine patch.Cont inue to encourage cessation Type 2 opal betes mellitus 69258990 E11.9 On problem list, but last HgA1C was in 2019 and was 5.8.Finger sticks inpt were all <200 and mostly <150.Brando nue healthy diet.Monit or prn Impaired cognition 74029 6002 R41.89 Mild.Monit or for need to invoke. Ventricula r tachycardia 40469039 I47.20 71242 Started on amiodarone as above, specifical ly for this.Had short episode inpt, with no further issues.Mon itor HR.F/U with cardio. Asthenia 50634256 R53.1 21921 Very deconditio avi.Needs PT/OT for strengthen ing, balance, gait training, safety and function.C ontinue fall precaution s.Monitor for safety. Chronic ki dney disease stage 3A 311553853 N18.31 77041128 Appears to be 3A at baseline, but improved in nl range with IV fluids inpt.Brando nue to avoid nephrotoxi c meds as able.Monit or labs.Renal consult prn. [id number] SHIREEN COLINDRES REDJEANA [address] [place] [address] 02/17/2025 10:37:17 02/19/2025 12:35:12 Leukocytosis 564651661 D72.829 12.7 today no significan t change from last weekshe is on prednisone 10 mg dailycont to monitor for s/sx of infectionC heck with PCP re: prednisone use, pt. does not recall being on this on a daily basisawait ing for med list from PCP Dr. 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 Chronic ob structive pulmonary disease 68625347 J44.9 cont Albuterol inhaler, neb tx prn, prednisone Checking with PCP re: chronic prednisone use - pt. does not recall taking Paroxysmal atrial fibrillation 320323882 I48.0 HR 90s,cont amiodarone , eliquisMon itor VS/CP status, bleeding risk Essential hypertension 79582567 I10 stablecont [place] [id number] [place] [address] 02/20/2025 10:44:50 02/24/2025 08:27:28 Leukocytosis 571564509 D72.829 no s/sx of infections he is on prednisone 10 mg dailycont to monitor for s/sx of infectionC heck with PCP re: prednisone use, pt. does not recall being on this on a daily basisawait ing for med list from PCP Dr. 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 Chronic ob structive pulmonary disease 36909273 J44.9 cont Albuterol inhaler, neb tx prn, prednisone Checking with PCP re: chronic prednisone use - pt. does not recall taking Paroxysmal atrial fibrillation 670140954 I48.0 HR 90s,cont amiodarone , eliquisMon itor VS/CP status, bleeding risk Essential hypertension 58530045 I10 stablecont metoprolol monitor VS [id number] SHIREEN COLINDRES [address] [place] [address] 02/25/2025 15:04:20 02/26/2025 08:03:29 Leukocytosis 584599044 D72.829 no s/sx of infectionn oted trending down this week.she is on prednisone 10 mg dailycont to monitor for s/sx of infection Acute hyponatremia 74213 02 E87.1 stableMild - 133Trend - monitor weekly Constipation 86603329 K5 9.00 cont senna-plus 2 tabs dailyencou rage fluids and activitymo nitor and adjust meds prn Gastrointe stinal hemorrhage 51140059 K92.2 lower GIBcolonos copy/EGD needed once cleared by cards and cardiac and renal functions improves.H /H remained stablecont protonixCN C 02/17 Seizure 74553494 R56.9 stable; no seizure activity.c ont keppramoni tor for activity, none reported so far. Essential hypertension 86987911 I10 stablecont metoprolol monitor VS [id number] SHIREEN COLINDRES [address] [place] [address] 02/28/2025 13:15:37 03/03/2025 11:29:56 Leukocytosis 704562430 D72.829 no s/sx of infectionn oted trending down this week.she is on prednisone 10 mg dailycont to monitor for s/sx of infection Paroxysmal atrial fibrillation 088389897 I48.0 HR 90s,cont amiodarone , eliquisMon itor VS/CP status, bleeding risk [id number] HE[facility]EN [facility]AN [facility] [address] [place] [address] 03/04/2025 10:47:33 03/06/2025 20:11:04 Leukocytosis 133138571 D72.829 Resolved.s he is on prednisone 10 mg daily. Paroxysmal atrial fibrillation 472979156 I48.0 HR stable.con tamiodaron e 200 mg dailyeliqu is 2.5 mg BID. Complete atrioventricular block 80060582 I44.2 Now with pacemaker. F/U with cardio as planned. Gastrointe stinal hemorrhage 88310026 K92.2 Resolved.H /H stable.F/u with PCP. Chronic ob structive pulmonary disease 53111622 J44.9 Stable.Con tinue prednisone 10 mg qd, duonebs qid and budesonide neb qd.f/u with PCP. Asthenia 49166594 R53.1 73697 Improved with PT and OT. Essential hypertension 80639155 I10 BP in good control on meds as above.BP goal for this elderly woman is permissive HTN, with SBP<150 and DBP<90 Type 2 opal betes mellitus 76491401 E11.9 On problem list, but last HgA1C was in 2019 and was 5.8.Finger sticks inpt were all <200 and mostly <150.Brando nue healthy diet. Chronic ki dney disease stage 3A 879029413 N18.31 04138122 Stable as her baseline.R enal consult prn. 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 Seizure 99606875 R56.9 No recent seizures.C ontinue keppra 750 mg BID.Monito r as outpt. Hyperlipidemia 48590748 E78.49 6808199 Continue simvastati n 20 mg qd.Monitor as outpt. Health Concerns Section Related Observation LastModified by Organization Detai ls LastModified Time None Recorded Concern Status LastModified by Organization Details LastModified Time None Recorded Advance Directives Directive Y: Payers Insurance Date Sequence Insurance Name Policy Number Policy Soriano Covered Member ID Soriano Member ID Guarantor Name 03/04/2025 1 [facility] - MEDICARE PREFERRED (MEDICARE REPLACEMENT HMO) [facility] Raine Kauffman [id number] Raine Kauffman Notes Date Note Type Note Provider Name and Address Organization Details Recorded Time 02/17/2025 text/html ROS as noted in the HPI This is an 89-year-old female seen for acute rounding visit. 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 She is alert and pleasant, mood is stable at baseline admission. breathing is easy, denies any chest pain or other CV symptoms; appetite is fair, she is not impressed with food, I suggested maybe family can bring in food she likes; no concerns with elimination( recently started on senna for constipation), she has been working with PT she feels like she is making some progress. Vitals are stable, Per nursing, there are no acute concerns. SARAH GAMA, NURSE EXAMINER [address], [address], [place], [address], [facility] [employer] 02/17/2025 21:26:52 02/20/2025 text/html ROS as noted in the HPI This is an 89-year-old female seen for acute rounding visit. 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 A+O, states that she feels lousy and uncomfortable because of the bed, she wants to go home. Otherwise she is currently stable,there are no acute nursing concerns. SHIREEN COLINDRES [address], [address], [place], [address], [facility] [employer] 02/20/2025 16:23:27 02/25/2025 text/html ROS as noted in the HPI This is an 89-year-old female seen for acute rounding visit. 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 she is currently lying in bed, she has been stable without any sx of bleeding noted, she is having normal colored BM; she conts to take eliquis. She is taking her metoprolol, HR noted in the 70s, there are no cv issues. she is followed by wound care for coccyx wound extending to bilateral buttocks , per wound [employer] wound is improving. she offers no complaints, she is anticipating discharged t home. SHIREEN COLINDRES [address], [address], [place], [address], [facility] [employer] 02/25/2025 16:42:27 02/28/2025 text/html ROS as noted in the HPI This is an 89-year-old female seen for acute rounding visit. 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 she is doing ok today, offers no complaints.denies any CV issues, HR is controlled, there is no acute nursing concerns. 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 Hospital stay was complicated by Afib with RVR and VT. During the rehab stay, noted with mild luekocytosis, but no s/s of infection and WBC trending down to 7.8. She is medically stable, will returning home with services and her current medications.Upon exam, Raine is sitting in bed, NAD. She is In good spirits, and states that ready for discharge. Denies any pain, continues to use boot in RLE, denies pain at this time.VSS - BP in decent range.Her functional ability has progressed with rehab.No acute concerns today. 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
--- OUTSIDE RECORDS SUMMARY | 2025-08-27 07:56 | XMS_ITS | Clinical Summary ---
Author Organization [facility] Address [address] [place] [address] Care Team Providers Care Status Controller Name Role Phone Iam Gee MD Primary Care Provider Unavailab le Allergies No known active allergies Medications Medication Sig Dispensed Refills Start Date End Date Status warfarin (COUMADIN) 1 MG tablet Take 1 mg by mouth daily. 0 Active aspirin EC 81 MG tablet Take 81 mg by mouth daily. 0 Active atenolol (TENORMIN) tablet 50 mg Take 1 tablet (50 mg total) by mouth daily. 0 Active simvastatin (ZOCOR) tablet 20 mg Take 1 tablet (20 mg total) by mouth every night at bedtime. 0 Active Cholecalciferol (VITAMIN D) 1000 units tablet Take 4 tablets (4,000 Units total) by mouth daily. 0 Active divalproex (DEPAKOTE) 500 MG EC tablet Take 500 mg by mouth daily. 0 Active Iron-Vitamin C (IRON 100/C PO) Take by mouth. 0 Active levETIRAcetam (KEPPRA) 750 MG tablet Take 1 tablet (750 mg total) by mouth 2 (two) times a day. 0 Active Multiple Vitamins-Minerals (PreserVision AREDS) CAPS Take by mouth. 0 Active Multiple Vitamin (MULTIVITAMIN ADULT PO) Take by mouth. 0 Active ferrous sulfate 325 (65 FE) MG tablet Take 1 tablet (325 mg total) by mouth every morning with breakfast. 0 Active tiotropium (SPIRIVA) [address] 1 capsule (18 mcg total) into inhaler and inhale daily. 0 Active Apixaban (ELIQUIS PO) Take by mouth. 0 Active Nebulizer MISC by Does not apply route. 0 Active acetaminophen (Tylenol 8 Hour Arthritis Pain) 650 MG CR tablet Take 1 tablet (650 mg total) by mouth every 8 (eight) hours as needed for pain. 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/2018 Diabetic neuropathy 08/14/2018 Hypertension 08/14/2018 Diabetes mellitus type 2 with neurological manif estations 06/12/2018 Hyperlipidemia 03/01/2018 Pulmonary nodules 03/01/2018 Asthma 11/29/2016 Family History Medical History Relation Name Comments Cancer Brother unknown cancer No Sig Med Hx Father No Sig Med Hx Mother Diabetes Son 1 Hypertension Son 1 Hypertension Son 2 Other Son 2 recent surgery for benign abdominal tumor Psoriasis Son 2 No Sig Med Hx Son 3 Relation Name Status Comments Brother Father (Age 87) Mother (Age 86) Son 1 Alive Son 2 Alive Son 3 Alive Social History Tobacco Use Types Packs/Day Years Used Date Smoking Tobacco: Former Cigarettes 0.5 70 1 01/03/1947 - 01/03/2018 Smokeless Tobacco: Never Tobacco Cessation:Counseling Given: Not Answered Alcohol Use Standard Drinks/Week Comments Yes 0 (1 standard drink = 0.6 oz pur e alcohol) 3-4 drinks daily Sex and Gender Information Value Date Recorded Sex Assigned at Not on file Gender Identity Not on file Sexual Orientation Not on file Job Start Date Occupation Industry Not on file Not on file Not on file Last Filed Vital Signs Vital Sign Reading Time Taken Comments Blood Pressure 115/43 08/26/2024 1:43 PM EDT Pulse 83 08/26/2024 1:43 PM EDT Temperature 36.8 C (98.3 F) 08/26/2024 1:43 PM EDT Respiratory Rate - - Oxygen Saturation 98% 08/26/2024 1:43 PM EDT Inhaled Oxygen Concentration - - Weight 52.5 kg (115 lb 12.8 oz) 08/26/2024 1:43 PM EDT Height 171.5 cm (5' 7.5 ) 08/26/2024 1:43 PM EDT Body Mass Index 17.87 08/26/2024 1:43 PM EDT Plan of Treatment Health Maintenance Due Date Last Done Comments COVID-19 Vaccine (#1) 1941 Pneumococcal Vaccine (1 of 2 - PCV) 1942 Depression Screening 1948 Preventative Health Evaluation 1954 Shingrix-Zoster Vaccine (1 of 2) 1955 Fall Risk Assessment 2001 Osteoporosis Screening (DEXA Scan) 2001 RSV Adult > 60+ Yrs or Pregn ant (1 - 1-dose 75+ series) 2011 Influenza Vaccine (#1) 2025 DTap / Tdap / Td (2 - Td or Tdap) 01/02/2033 023 Hepatitis B Vaccines Aged Out No long er eligible based on patient's age to complete this topic RSV Ped < 20 months Aged Out No longe r eligible based on patient's age to complete this topic Care Teams Status Controller Relationship Specialty Start Date End Date Iam Gee MD PCP - General Internal Medicine 01/17/19
--- OUTSIDE RECORDS SUMMARY | 2025-08-27 07:56 | XMS_ITS | Encounter Summary ---
Author Organization [facility] Address [address] [place] [address] Care Team Providers Care Supervisor Screen Printing Name Role Phone Iam Gee MD Primary Care Provider [phone] Reason for Visit * Reason Onset Date Comments Request For Order(s) 08/13/2025 Intern[facility] [employer] [facility] Orders 08/05/25 Encounter Details Date Type Department Care Team (Late st Contact Info) Description 08/13/2025 Telephone Internal Medicine - [address] [place] [address] Fallon Boykin MA Social History Tobacco Use Types Packs/Day Years [...] as of this encounter Progress Notes * Fallon Boykin MA - 08/15/2025 6:25 AM EDT Scanned into chart and faxed to [employer] [phone] * Fallon Boykin MA - 08/13/2025 9:27 AM EDT [employer] [facility] Orders 08/05/25 Please sign & fax [phone] documented in this encounter Plan of Treatment Upcoming Encounters Date Type Department Care Team (Late st Contact Info) Description 08/28/2025 10:30 AM EDT Office Visit Orthopedic Surgery - [place] [address] [facility] 250 [place] [phone] Aime Mendoza DPYosef 175 [facility] 250 [place] [phone] 09/12/2025 2:30 PM EDT Office Visit Vascular Surgery - [place] [address] [place] [address] Berny Saavedra MD [address] [place] [phone] 10/13/2025 8:45 AM EST Office Visit Internal Medicine - [place] 175 [facility] 200 [place] [phone] Iam Gee MD 175 [facility] 200 [place] [address] 11/05/2025 8:30 AM EST Office Visit Gastroenterology - [place] 175 [facility] 175 [facility] [address] [place] [phone] Elise Savage PA 175 [facility] 200 [place] [address] 11/10/2025 9:15 AM EST Office Visit Pulmonology - [place] 175 [facility] 200 [place] [phone] Juanita Clements MD 175 [facility] 200 [place] [address] 01/05/2026 8:00 AM EST Office Visit Pulmonology - [place] 175 [facility] 200 [place] [phone] Juanita Clements MD 175 [facility] 200 [place] [address] 03/03/2026 9:00 AM EDT Ancillary Procedure [facility] 154 [address] [facility] 154 [place] [phone] documented as of this encounter Visit Diagnoses Not on filedocumented in this encounter Care Teams Supervisor Screen Printing Relationship Specialty Start Date End Date Iam Gee MD 175 [facility] 200 [place] [address] PCP - General Internal Medicine 12/30/24 documented as of this encounter
--- OUTSIDE RECORDS SUMMARY | 2025-08-27 07:56 | XMS_ITS | Encounter Summary ---
Author Organization [facility] Address [address] [place] [address] Care Team Providers Care Psychologist Social Name Role Phone Iam Gee MD Primary Care Provider Encounter Details Date Type Department Care Team (Late st Contact Info) Description 08/26/2025 Telephone Vascular Surgery - [place] 300 [facility] [address] [place] [address] Berny Saavedra MD [address] [place] [phone] Social History Tobacco Use Types Packs/Day Years [...] as of this encounter Progress Notes * Bryanna Anaya - 08/26/2025 11:40 AM EDT I spoke to patient's Son to let them know patient needs to be seen by Dr Saavedra. I offered 09/10 @2:30 pm but he can't do afternoon appointment. Son will call us back once he speak with his job hoping he has time off and will call us back documented in this encounter Plan of Treatment Upcoming Encounters Date Type Department Care Team (Late st Contact Info) Description 08/28/2025 10:30 AM EDT Office Visit Orthopedic Surgery - [place] 250 175 [facility] 250 [place] [phone] Aime Mendoza DPYosef [address] [phone] 09/12/2025 2:30 PM EDT Office Visit Vascular Surgery - [place] [address] [facility] 210 [place] [address] Berny Saavedra MD [address] [place] [phone] 10/13/2025 8:45 AM EST Office Visit Internal Medicine - [place] 175 [facility] 200 [place] [phone] Iam Gee MD [address] [address] 11/05/2025 8:30 AM EST Office Visit Gastroenterology - [place] 175 [facility] [address] [phone] Elise [place] PA [address] [address] 11/10/2025 9:15 AM EST Office Visit Pulmonology - [place] [address] [phone] Juanita Clements MD 175 [facility] 200 [place] [address] 01/05/2026 8:00 AM EST Office Visit Pulmonology - [place] 175 [facility] [address] [place] [address] Juanita Clements MD 175 [facility] 200 [place] [address] 03/03/2026 9:00 AM EDT Ancillary Procedure [facility] 154 300 [facility] 154 [place] [phone] documented as of this encounter Visit Diagnoses Not on filedocumented in this encounter Care Teams Psychologist Social Relationship Specialty Start Date End Date Iam Gee MD 175 [facility] 200 [place] [address] PCP - General Internal Medicine 12/30/24 documented as of this encounter
[2025-08-27 08:03] VITALS: BP 130/60; PULSE 65; O2SAT 92
--- NOTE | 2025-08-27 08:03 | MHC.OFFVIS ---
Vital Signs 08/27/25 08:03 Height 5 ft 7 in BP 130/60 Pulse 65 Pulse Source Pulse Oximeter Pulse Oximetry (%) 92 Oxygen Delivery Method Room Air Intake Visit Reasons: Follow Up 1 yr Uptwister Tender Required: No Accompanied by: Self / Same As Patient Allergies No Known Allergies Allergy (Verified 08/27/25 08:06) Medication List - Last Reconciled 08/27/25 by SHIREEN Sol albuterol sulfate 2.5 mg inhalation Q4H PRN amiodarone 200 mg PO DAILY apixaban (Eliquis) 2.5 mg PO BID atenolol 50 mg PO DAILY cholecalciferol (vitamin D3) 25 mcg PO DAILY doxycycline hyclate 100 mg PO DAILY ferrous sulfate 325 mg PO DAILY levetiracetam 750 mg PO BID 90 days pantoprazole 40 mg PO DAILY prednisolone sodium phosphate 10 mg PO DAILY simvastatin 20 mg PO BEDTIME HPI Comments Details: 89-yr-old female presents for f/u visit. Pt is accompanied by her son, Freddy Ferro who is her HCP. Patient's son reports the patient recently underwent a BLE vascualr study due to absence of BLE pulses. They are undsure how/why this was identified. Denies recent BLE swelling, pain, numbness. Though she has a h/o painful neuropathy. Son also reports that pulmonology, Dr Clements, has recommended patient undergo a lung biopsy, however patient has declined at this time. Son states she is compliant with her medications, including eliquis and iron supplement- but states she does not take this with vit C or OJ- does not tolerate OJ. Pt denies any interval seizure activity. She is compliant w/ Keppra- tolerating well. She continue sto have STM difficulties. Family manages medications, appointments, and finances,a nd meal prep. 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 Son denies any behavior concerns. Denies headaches, spacing out episodes, lightheadedness, dizziness, falls, stroke-like symptoms. She states she is eating and drinking ok. However her son states that her appetite has decreased. She is still taking gin and tonic. She uses a rollator walker at home, w/c for appt's. She is sleeping a lot . [facility] Medical History (Updated 08/27/25 @ 08:56 by SHIREEN Sol) Diabetic neuropathy Asthma Pulmonary nodule Hyperlipidemia Hypertension Cancer of mouth Alcohol abuse Type 2 diabetes mellitus with renal manifestations CKD (chronic kidney disease) Carotid stenosis Anemia Atrial fibrillation Surgical History Hx of oral surgery Hx of hemorrhoidectomy Hx of hysterectomy Social History Household Members Other:: SON Alcohol intake: current Alcohol intake frequency: 3 or more drinks per day Alcohol type: hard liquor Patient Tobacco Use Status: Current everyday Tobacco user Cigarette Packs Per Day: 0.5 Physical Exam Vital Signs: Last Vital Signs Pulse 65 08/27/25 08:03 BP 130/60 08/27/25 08:03 Pulse Ox 92 08/27/25 08:03 Oxygen Delivery Method Room Air 08/27/25 08:03 Resp Effort & Inspection: normal respiratory effort and able to speak in complete sentences Neuro Other: Patient is alert and oriented w/ short-term recall difficulties. Sitting upright in w/c. Psych Affect: normal affect Attitude: cooperative Assessment & Plan Assessment & Plan (1) Seizure: Code(s): R56.9 - Unspecified convulsions Category: Medical (2) Diabetic neuropathy: Comment: improved Code(s): E11.40 - Type 2 diabetes mellitus with diabetic neuropathy, unspecified Category: Medical Qualifiers: Diabetes mellitus type: type 2 Diabetes mellitus complication detail: diabetic polyneuropathy Qualified Code(s): E11.42 - Type 2 diabetes mellitus with diabetic polyneuropathy (3) Dementia: Code(s): F03.90 - Unspecified dementia, unspecified severity, without behavioral disturbance, psychotic disturbance, mood disturbance, and anxiety Category: Medical Qualifiers: Dementia type: unspecified type Dementia severity: unspecified severity Dementia behavioral or psychological symptom: unspecified whether behavioral, psychotic, or mood disturbance or anxiety Qualified Code(s): F03.90 - Unspecified dementia, unspecified severity, without behavioral disturbance, psychotic disturbance, mood disturbance, and anxiety Plan Continue Levetiracetam 750mg bid. Pt does continue to take alcohol on a daily basis when at home- pt is not interested in stopping. Advised abrupt alcohol cessation can induce seizure activity. Continue to optimize CV and metabolic risk factors as able. Follow-up with PCP and labs as scheduled. Advised patient and son to ask PCP if she should be taking her iron supplement w/ a vitamin C supplement. Monitor BLE neuropathic pain- patient denies any current symptoms. Pt to call us with any interval changes or breakthrough seizures. Pt to follow-up in 12 months or sooner prn. Medications: Refilled levetiracetam 750 mg PO BID 180 tabs 3RF 90 days Coding Level of Care Code Est Pt Level 4 (82618) Diagnoses Seizure R56.9 Diabetic polyneuropathy associated with type 2 diabetes mellitus E11.42 Diabetes mellitus type: type 2 Diabetes mellitus complication detail: diabetic polyneuropathy Dementia, unspecified dementia severity, unspecified dementia type, unspecified whether behavioral, psychotic, or mood disturbance or anxiety F03.90 Dementia type: unspecified type Dementia severity: unspecified severity Dementia behavioral or psychological symptom: unspecified whether behavioral, psychotic, or mood disturbance or anxiety
== END 2025-08-27 08:54 | disposition home or self-care (01) ==
LOC: HO.HSMS 07:51
PROVIDERS: PCP Internal Medicine; Visit Provider Nurse Practitioner Family
DX: R56.9 Unspecified convulsions (principal); E11.42 Type 2 diabetes mellitus with diabetic polyneuropathy; F03.90 Unspecified dementia, unspecified severity, without behavioral disturbance, psychotic disturbance, mood disturbance, and anxiety
CPT/HCPCS: 99214

== ENCOUNTER → 2025-08-27 07:51 | Outpatient (BNVA) | payer MEDICARE, SELFPAY | PROVIDERS: PCP Internal Medicine; Visit Provider Nurse Practitioner Family | DX: E11.42 Type 2 diabetes mellitus with diabetic polyneuropathy (principal); R56.9 Unspecified convulsions; F03.90 Unspecified dementia, unspecified severity, without behavioral disturbance, psychotic disturbance, mood disturbance, and anxiety | CPT/HCPCS: 99212 ==